=== PATIENT | male | born 1940 | race Caucasian/White ===

== ENCOUNTER → 2020-06-10 15:16 | Outpatient (CLI) | payer MEDICARE, SELFPAY ==
--- NOTE | 2020-06-10 15:20 | DI.RAD.S_ITS ---
PROCEDURE: XR FOOT RT MIN 3V INDICATIONS: dropped 4x4 on foot TECHNIQUE: Three views of the foot were acquired. COMPARISON: None. FINDINGS: Bones: No fractures or dislocations. No suspicious bony lesions. Soft tissues: No tibiotalar joint effusion. Achilles tendon appears normal. IMPRESSION: No visible fractures. Dictated by: Tiera Chin M.D. on 06/10/2020 at 15:49 Approved by: Tiera Chin M.D. on 06/10/2020 at 15:49
== END ==
PROVIDERS: Referring Provider Nurse Practitioner; Visit Provider Nurse Practitioner
DX: M79.671 Pain in right foot (principal)
CPT/HCPCS: 73630

== ENCOUNTER 2021-05-10 11:40 | Inpatient (IN) | payer MEDICARE, SELFPAY ==
[2021-05-10] VITALS (13 sets, daily range): BP systolic 106–177; BP diastolic 44–93; PULSE 62–96; RESP 15–22; TEMP 36.3–37.8; O2SAT 94–99; BMI 25.8
--- NOTE | 2021-05-10 | PATH_ITS ---
[facility] Accession Number: [id number] . 01 Material submitted: . appendix - APPENDIX . 02 Diagnosis: Appendix, Appendectomy: Acute appendicitis with serositis. No evidence of neoplasm. [facility] 05/16/2021 1654 Local . 02 Electronically signed: . Santo Motley MD, PhD, Pathologist NPI- [id number] . 01 Gross description: . The specimen is received in formalin, labeled appendix, and consists of a 5.6 cm in length by 0.6 cm in diameter vermiform appendix with attached cope-yellow lobulated mesoappendix measuring 5.0 x 3.0 x 1.5 cm in aggregate. The vermiform appendix has been previously opened longitudinally. The serosa is cope-pink and smooth. Sectioning reveals a cope mucosa and a lumen measuring 1.0 cm in diameter in circumference. The vermiform appendix is entirely submitted, to include the en face margin (blue), central cross-sections, and bisected tip in cassettes A1-A3. ([id number]) /[facility] 05/12/2021 1409 Local . 02 Pathologist provided ICD-10: K35.80 . 02 CPT . 712540 Performed at: 01 [facility] [address], [place], [place] [id number] MD Tom Curiel MD Phone: [phone] Performed at: 02 [facility] [address] [place], [place] [id number] MD Patricia Edge MD Phone: [phone]
[2021-05-10 12:22] LABS: Add Manual Diff / Slide Review NO; Basophils Absolute Auto 100 /uL (0-100); Basophils Percent Auto 0.3 % (0-2); Eosinophils Absolute Auto 100 /uL (0-450); Eosinophils Percent Auto 0.4 % (2-4); Hematocrit 44.2 % (41-53); Hemoglobin 14.7 g/dL (13.5-17.5); Lymphocytes Absolute Auto 1000 /uL (1100-4500); Lymphocytes Percent Auto 5.9 % (25-40); Mean Corpuscular HGB Conc 33.3 % (30-36); Mean Corpuscular Hemoglobin 29.6 PG (26-34); Mean Corpuscular Volume 89.1 fL (80-100); Monocytes Absolute Auto 800 /uL (0-900); Monocytes Percent Auto 4.7 % (3-14); Neutrophils Absolute Auto 14400 /uL (1500-7000); Neutrophils Percent Auto 88.7 % (50-75); Platelet Count 302 X10^3/uL (150-400); Red Blood Cell Count 4.96 X10^6/uL (4.5-5.9); Red Cell Distribution Width 13.8 % (11.6-14.8); White Blood Cell Count 16.2 X10^3/uL (4.5-11.0)
[2021-05-10 12:34] LABS: Alanine Aminotransferase 15 IU/L (<50); Albumin 4.3 g/dL (3.5-5.0); Albumin Globulin Ratio 1.5 (1.0-2.8); Alkaline Phosphatase 85 U/L (38-126); Aspartate Aminotransferase 22 IU/L (17-59); BUN Creatinine Ratio 21.7 (6-22); Bilirubin Total 0.6 mg/dL (0.2-1.3); Blood Urea Nitrogen 15 mg/dL (9-20); Calcium 9.6 mg/dL (8.4-10.2); Carbon Dioxide 28 mmol/L (22-32); Chloride 100 mmol/L (98-107); Creatine Kinase 47 U/L (55-170); Estimated Glomerular Filt Rate > 60.0 mL/min (>60); Globulin 2.9 g/dL (1.7-4.1); Glucose 179 mg/dL (80-110); HEMOLYSIS 15 (0-50); Lipase 17 U/L (23-300); Potassium 3.9 mmol/L (3.4-5.1); Sodium 135 mmol/L (137-145); Total Protein 7.2 g/dL (6.3-8.2)
[2021-05-10 12:45] LABS: Troponin I < 0.012 ng/mL (0.01-0.034)
--- NOTE | 2021-05-10 13:05 | DI.CT.S_ITS ---
PROCEDURE: CT ABDOMEN PELVIS W CON INDICATIONS: RLQ abdominal pain TECHNIQUE: After the administration of intravenous contrast, axial sections acquired from the lung bases to the pubic symphysis. Coronal and sagittal reformats were performed. For radiation dose reduction, the following was used: automated exposure control, adjustment of mA and/or kV according to patient size. COMPARISON: None. FINDINGS: Image quality: Excellent. Lung bases: Bibasilar scars and atelectasis. There is a small hiatal hernia. Heart: No significant findings. ABDOMEN: Liver: Unremarkable. Gallbladder: Unremarkable. Biliary ducts: Unremarkable. Pancreas: Unremarkable. Spleen: Unremarkable. Adrenal Glands: Unremarkable. Kidneys and Ureters: Unremarkable. Stomach and Bowel: Appendix is enlarged measuring 10 mm in diameter. There is increased appendiceal wall enhancement and mild periappendiceal stranding consistent with acute appendicitis. Cecum is thickened, probably secondary to direct spread of inflammation/infection. There is a large amount of stool in colon. A few colonic diverticula are noted. No diverticulitis. Peritoneum: A small amount of free fluid is present. No free air. Ventral Wall: No hernias. Abdominal Nodes: No retroperitoneal or mesenteric adenopathy by size criteria. Vessels: Aorta and inferior vena cava are normal in size. PELVIS: Pelvic Organs: Unremarkable. Bladder: Unremarkable. Pelvic Nodes: No enlarged lymph nodes. Miscellaneous: No hernias are seen. Bones: There are degenerative changes in lumbar spine.. IMPRESSION: 1. Enlarged appendix with increased appendiceal wall enhancement and periappendiceal stranding consistent with acute appendicitis. There is a small amount of free fluid in the right lower quadrant. No drainable fluid collections to suggest abscess. No free air. 2. Thickening of cecum is most likely secondary to direct spread of inflammation/infection. A neoplastic process is, however, not excluded. 3. A large amount of stool in colon. 4. Small hiatal hernia. 5. Bibasilar scars and atelectasis. The result was discussed with Dr. Flores. Dictated by: Pranav Soler M.D. on 05/10/2021 at 13:07 Approved by: Pranav Soler M.D. on 05/10/2021 at 13:23
--- NOTE | 2021-05-10 14:01 | ED.ABDPAIN ---
HPI - Abdominal Pain General Chief Complaint: Abdominal Pain Stated Complaint: LRQ Pain, Sent From [facility] Time Seen by Provider: 05/10/21 12:21 History of Present Illness HPI narrative: 80-year-old gentleman with a history of hypertension, hyperlipidemia, hypothyroidism currently on no blood thinners, presents in his usual state of excellent health until this morning when he developed right lower quadrant pain that became increasingly severe. Was initially seen in urgent care and sent down to the emergency room for further evaluation with concern for acute appendicitis. He describes no recent fevers, cough, chills, headache, orthopnea, dyspnea, acute neurologic changes, dysuria diarrhea or skin findings. Related Data Home Medications Medication Instructions Recorded Confirmed OMEPRAZOLE 20 mg PO Q DAY #0 12/31/10 05/10/21 Simvastatin (Zocor) 10 mg PO HS #0 12/31/10 05/10/21 lisinopril 30 mg tablet 30 mg PO DAILY 06/10/20 05/10/21 Allergies Allergy/AdvReac Type Severity Reaction Status Date / Time No Known Drug Allergies Allergy Verified 06/10/20 16:06 Review of Systems Review of Systems Narrative: Remainder of complete review of systems is otherwise unremarkable except for that included in the HPI. Patient History Medical History (Updated 05/10/21 @ 20:21 by Ekta Flores MD) Elevated cholesterol Hypertension Surgical History S/P operative procedure on shoulder S/P operative procedure on wrist Social History household members: spouse and family Smoking Status: Never smoker alcohol intake: never Smoking Status: Never smoker Substance Use Type: does not use Exam Narrative Exam Narrative: General: Healthy appearing, in no acute distress. Able to give a complete and coherent history. Well-nourished well-developed HEENT: Moist mucous membranes, normal sclera with reactive pupils, Neck: No JVD, supple Respiratory: Lungs are clear to auscultation, no wheezing no rales no rhonchi. Full and symmetrical air movement Cardiac: Regular rate and rhythm no murmurs no bruits Abdomen: Soft, moderately tender in the right lower quadrant without rebound or guarding good bowel tones, no flank pain Skin: Warm and dry, no rashes Neurologic: Grossly neurologically intact with no obvious asymmetries or abnormalities Extremities: No trauma, well perfused Psych: Cooperative, appropriate insight and affect Initial Vital Signs Initial Vital Signs: Vital Signs Temperature 97.9 F 05/10/21 12:04 Pulse Rate 78 05/10/21 12:04 Respiratory Rate 18 05/10/21 12:04 Blood Pressure 177/77 H 05/10/21 12:04 Pulse Oximetry 99 05/10/21 12:04 Course Orders Ordered: ED Orders 05/10/21 12:12 Complete Blood Count AUTO DIFF Stat Comprehensive Metabolic Panel Stat Lipase Stat Troponin & CK Cardiac Panel Stat 05/10/21 13:05 CT abdomen pelvis w con Stat 05/10/21 14:30 COVID19 - ADMIT ([employer] swab/PCR) Stat Acetaminophen (Acetaminophen 325 Mg Tablet) 650 mg PO PACUNOW PRN PRN Reason: Pain, Mild (1-3) Fentanyl (Fentanyl 100 Mcg/2 Ml Inj) 0 mcg IV Q5M PRN PRN Reason: Pain, Moderate (4-6) Hydromorphone HCl (Hydromorphone 2 Mg Inj) 0 mg IV Q5MIN PRN PRN Reason: Pain, Mild (1-3) Piperacillin Sod/Tazobactam (Sod 3.375 gm/ Sodium Chloride) 100 mls @ 25 mls/hr IV Q8H ZOILA Last Infusion: 05/10/21 19:04 Dose: 0 mls/hr Documented by: Admin: 05/10/21 18:59 Dose: 25 mls/hr Documented by: ROBERT Lactated Ringer's (Lactated Ringers) 1,000 mls @ 42 mls/hr IV CONT ZOILA Ondansetron HCl (Ondansetron 4 Mg/2 Ml Inj) 4 mg IV NOW PRN PRN Reason: Nausea And Vomiting Oxycodone HCl (Oxycodone Ir 5 Mg Tablet) 5 mg PO PACUNOW PRN PRN Reason: Mild or moderate pain Discontinued Medications Bupivacaine HCl (Bupivacaine 0.5% (Pf) Vial) 30 ml INJ NOW ONE Stop: 05/10/21 19:30 Last Admin: 05/10/21 19:29 Dose: 30 ml Documented by: ANGELA Piperacillin Sod/Tazobactam (Sod 4.5 gm/ Sodium Chloride) 100 mls @ 200 mls/hr IV NOW ONE Stop: 05/10/21 13:22 Last Infusion: 05/10/21 15:04 Dose: 0 mls/hr Documented by: Admin: 05/10/21 14:33 Dose: 200 mls/hr Documented by: KATHERYN Sodium Chloride (Normal Saline 0.9%) 1,000 mls @ 150 mls/hr IV CONT ZOILA Last Infusion: 05/10/21 15:04 Dose: 150 mls/hr Documented by: Admin: 05/10/21 14:34 Dose: 150 mls/hr Documented by: KATHERYN Lactated Ringer's (Lactated Ringers) 1,000 mls @ 150 mls/hr IV CONT ZOILA Last Infusion: 05/10/21 17:19 Dose: 0 mls/hr Documented by: Infusion: 05/10/21 17:18 Dose: 0 mls/hr Documented by: Admin: 05/10/21 15:47 Dose: 150 mls/hr Documented by: CECILIA Lactated Ringer's (Lactated Ringers) 1,000 mls @ 42 mls/hr IV CONT ZOILA Last Admin: 05/10/21 17:23 Dose: 42 mls/hr Documented by: SIERRA Metoclopramide HCl (Metoclopramide 10 Mg/2 Ml Inj) 10 mg IV NOW ONE Stop: 05/10/21 15:21 Last Admin: 05/10/21 15:47 Dose: 10 mg Documented by: CECILIA Pantoprazole Sodium (Pantoprazole 40 Mg Vial) 20 mg IV NOW ONE Stop: 05/10/21 15:21 Last Admin: 05/10/21 15:46 Dose: 20 mg Documented by: CECILIA Vital Signs Vital signs: Vital Signs - 8 hr 05/10/21 12:04 Temperature 97.9 F Pulse Rate 78 Respiratory Rate 18 Blood Pressure 177/77 H Pulse Oximetry 99 MDM - Abdominal Pain Lab Data Result diagrams: 05/10/21 12:12 05/10/21 12:12 Labs: Lab Results 05/10/21 05/10/21 05/10/21 Range/Units 12:12 12:12 12:12 WBC 16.2 H (4.5-11.0) X10^3/uL RBC 4.96 (4.5-5.9) X10^6/uL Hgb 14.7 (13.5-17.5) g/dL Hct 44.2 (41-53) % MCV 89.1 (80-100) fL MCH 29.6 (26-34) PG MCHC 33.3 (30-36) % RDW 13.8 (11.6-14.8) % Plt Count 302 (150-400) X10^3/uL Neut % (Auto) 88.7 H (50-75) % Lymph % (Auto) 5.9 L (25-40) % [place] % (Auto) 4.7 (3-14) % Eos % (Auto) 0.4 L (2-4) % Baso % (Auto) 0.3 (0-2) % Neut # (Auto) 63823 H (8996-2341) /uL Lymph # (Auto) 1000 L (5725-0185) /uL [place] # (Auto) 800 (0-900) /uL Eos # (Auto) 100 (0-450) /uL Baso # (Auto) 100 (0-100) /uL Sodium 135 L (137-145) mmol/L Potassium 3.9 (3.4-5.1) mmol/L Chloride 100 (98-107) mmol/L Carbon Dioxide 28 (22-32) mmol/L BUN 15 (9-20) mg/dL Creatinine 0.69 (0.66-1.25) mg/dL Estimated GFR > 60.0 (>60) mL/min BUN/Creatinine Ratio 21.7 (6-22) Glucose 179 H (80-110) mg/dL Calcium 9.6 (8.4-10.2) mg/dL Total Bilirubin 0.6 (0.2-1.3) mg/dL AST 22 (17-59) IU/L ALT 15 (<50) IU/L Alkaline Phosphatase 85 (38-126) U/L Total Creatine Kinase 47 L (55-170) U/L CK-MB (CK-2) TNP CK-MB (CK-2) Rel Index TNP Troponin I < 0.012 (0.01-0.034) ng/mL Total Protein 7.2 (6.3-8.2) g/dL Albumin 4.3 (3.5-5.0) g/dL Globulin 2.9 (1.7-4.1) g/dL Albumin/Globulin Ratio 1.5 (1.0-2.8) Lipase 17 L (23-300) U/L Imaging Data CT scan - abdomen/pelvis: Radiologist's Impression: INDINGS: Image quality: Excellent. Lung bases: Bibasilar scars and atelectasis. There is a small hiatal hernia. Heart: No significant findings. ABDOMEN: Liver: Unremarkable. Gallbladder: Unremarkable. Biliary ducts: Unremarkable. Pancreas: Unremarkable. Spleen: Unremarkable. Adrenal Glands: Unremarkable. Kidneys and Ureters: Unremarkable. Stomach and Bowel: Appendix is enlarged measuring 10 mm in diameter. There is increased appendiceal wall enhancement and mild periappendiceal stranding consistent with acute appendicitis. Cecum is thickened, probably secondary to direct spread of inflammation/infection. There is a large amount of stool in colon. A few colonic diverticula are noted. No diverticulitis. Peritoneum: A small amount of free fluid is present. No free air. Ventral Wall: No hernias. Abdominal Nodes: No retroperitoneal or mesenteric adenopathy by size criteria. Vessels: Aorta and inferior vena cava are normal in size. PELVIS: Pelvic Organs: Unremarkable. Bladder: Unremarkable. Pelvic Nodes: No enlarged lymph nodes. Miscellaneous: No hernias are seen. Bones: There are degenerative changes in lumbar spine.. IMPRESSION: 1. Enlarged appendix with increased appendiceal wall enhancement and periappendiceal stranding consistent with acute appendicitis. There is a small amount of free fluid in the right lower quadrant. No drainable fluid collections to suggest abscess. No free air. 2. Thickening of cecum is most likely secondary to direct spread of inflammation/infection. A neoplastic process is, however, not excluded. 3. A large amount of stool in colon. 4. Small hiatal hernia. 5. Bibasilar scars and atelectasis. The result was discussed with Dr. Flores. Dictated by: Pranav Soler M.D. on 05/10/2021 at 13:07 MDM Narrative Medical decision making narrative: 80-year-old gentleman with acute right lower quadrant pain elevated white blood cell count CT scan suggestive of acute appendicitis. His is aged rather abrupt presentation the possibility of a para appendiceal neoplastic process is at least entertained. Care is reviewed with Dr. John, general surgeon. Patient will be admitted to his service with anticipation of surgical intervention later this afternoon. At this point there is no evidence of overwhelming sepsis and he is safe for transfer to the floor. Discharge Plan Departure Patient Disposition: Admitted As Inpatient Clinical Impression: Acute appendicitis Qualifiers: Acute appendicitis type: with localized peritonitis Appendicitis gangrene presence: without gangrene Appendicitis perforation presence: without perforation Appendicitis abscess presence: without abscess Qualified Code(s): K35.30 - Acute appendicitis with localized peritonitis, without perforation or gangrene Admit Date/Time: 05/10/21 14:10 Admit Provider: Oleksandr John
[2021-05-10] MEDS: PIPERACILLIN/TAZO 4.5 GM in SODIUM CHLORIDE 0.9% 100 ML 200 ML IV (14:33)
[2021-05-10] MEDS: SODIUM CHLORIDE 0.9% 1,000 ML 150 ML IV (14:34)
[2021-05-10] MEDS: ONDANSETRON 4 MG/2 ML INJ (14:34)
--- NOTE | 2021-05-10 14:48 | PC.NURSE ---
Reports last PO intake 0900. 05/29 pain, declining anything for pain at this time.
[2021-05-10 15:24] LABS: COVID19 - ADMIT (NP swab/PCR) Negative (Negative)
--- NOTE | 2021-05-10 15:43 | PM.HP.1 ---
History of Present Illness History of Present Illness Chief complaint: LRQ Pain, Sent [facility] Narrative: Patient is a gentleman who developed abdominal pain at about 9 or 10:00 a.m. this morning. He thought he was constipated and took something but it did not do anything. His pain is located mostly in the right lower quadrant. He has not had this pain before. He has never had an abdominal operation. He has been nauseated. Anorexic. Last p.o. was yesterday. Last normal bowel movement was a day and half ago which is typical for him. Patient History Medical History (Updated 05/10/21 @ 15:51 by Oleksandr John MD) Elevated cholesterol Hypertension Surgical History (Updated 05/10/21 @ 15:45 by Oleksandr John MD) S/P operative procedure on shoulder S/P operative procedure on wrist Family & Social History Safety & Behavioral: Feels Safe in Current Yes Environment Been Physically Hurt or No Threatened By a Person Tobacco & Substance use: Smoking Status Never smoker Substance Use Type does not use Meds Home Medications and Allergies Home Medications Medication Instructions Recorded Confirmed Type ASPIRIN (Aspirin Low Dose) 81 mg PO Q DAY #0 12/31/10 06/10/20 History MULTIVITAMIN (Multivitamin 1 cap PO EVERY DAY #0 12/31/10 06/10/20 History -) OMEPRAZOLE 20 mg PO Q DAY #0 12/31/10 06/10/20 History Simvastatin (Zocor) 10 mg PO HS #0 12/31/10 06/10/20 History lisinopril 30 mg tablet 30 mg PO DAILY 06/10/20 06/10/20 History Allergies Allergy/AdvReac Type Severity Reaction Status Date / Time No Known Drug Allergies Allergy Verified 06/10/20 16:06 Review of Systems Review of Systems Narrative: Patient denies visit cold difficulties. No tooth aches no cough cold or asthma no heart problems. No chest pain. No black or bloody bowel movements. Has had a colonoscopy. It has been about 4 years. Patient has had an echocardiogram because of a murmur and he is unaware of anything seriously found patient urinates without difficulty. No seizures or blackouts. No anxiety or depression. Exam Vital Signs (past 8 hours): - 05/10/21 12:04 05/10/21 15:06 05/10/21 15:15 Temperature 97.9 F 99.1 F Pulse Rate 78 76 96 H Respiratory Rate 18 16 18 Blood Pressure 177/77 H 150/93 H 142/78 H Pulse Oximetry 99 94 94 Oxygen Delivery Method Room Air Oxygen Flow Rate 0 Narrative Exam Narrative: Cooperative no apparent distress. Her eyes are nonicteric. Neck is without nodes or masses. No supraclavicular nodes are felt. Trachea may be slightly deviated to the left. But is mobile. Lungs are clear to auscultation. Heart regular rate and rhythm with 2/6 systolic murmur best at the base with no radiation of the neck. He has an occasional missed beat. No heave lift or thrill. His abdomen is mildly protuberant/mildly distended and soft. There is tenderness in the right lower quadrant that is localized. No involuntary guarding. Alert and oriented x3. Speech rate and content are appropriate. Affect is appropriate. Objective Imaging CT scan - abdomen: My impression: Patient has a thickening and stranding in adjacent to his appendix. It is hyperemic. Labs Result Diagrams: 05/10/21 12:12 05/10/21 12:12 Labs: Laboratory Results - last 24 hr 05/10/21 05/10/21 05/10/21 12:12 12:12 12:12 WBC 16.2 H RBC 4.96 Hgb 14.7 Hct 44.2 MCV 89.1 MCH 29.6 MCHC 33.3 RDW 13.8 Plt Count 302 Neut % (Auto) 88.7 H Lymph % (Auto) 5.9 L [place] % (Auto) 4.7 Eos % (Auto) 0.4 L Baso % (Auto) 0.3 Neut # (Auto) 29182 H Lymph # (Auto) 1000 L [place] # (Auto) 800 Eos # (Auto) 100 Baso # (Auto) 100 Sodium 135 L Potassium 3.9 Chloride 100 Carbon Dioxide 28 BUN 15 Creatinine 0.69 Estimated GFR > 60.0 BUN/Creatinine Ratio 21.7 Glucose 179 H Calcium 9.6 Total Bilirubin 0.6 AST 22 ALT 15 Alkaline Phosphatase 85 Total Creatine Kinase 47 L CK-MB (CK-2) TNP CK-MB (CK-2) Rel Index TNP Troponin I < 0.012 Total Protein 7.2 Albumin 4.3 Globulin 2.9 Albumin/Globulin Ratio 1.5 Lipase 17 L SARS-CoV-2 (PCR) 05/10/21 14:30 WBC RBC Hgb Hct MCV MCH MCHC RDW Plt Count Neut % (Auto) Lymph % (Auto) [place] % (Auto) Eos % (Auto) Baso % (Auto) Neut # (Auto) Lymph # (Auto) [place] # (Auto) Eos # (Auto) Baso # (Auto) Sodium Potassium Chloride Carbon Dioxide BUN Creatinine Estimated GFR BUN/Creatinine Ratio Glucose Calcium Total Bilirubin AST ALT Alkaline Phosphatase Total Creatine Kinase CK-MB (CK-2) CK-MB (CK-2) Rel Index Troponin I Total Protein Albumin Globulin Albumin/Globulin Ratio Lipase SARS-CoV-2 (PCR) Negative Assessment & Plan Assessment and plan (1) Acute appendicitis: Problem details: Plan to do a laparoscopic appendectomy. I spent some time talking to him about alternative diagnoses. It is a little unusual for an 80-year-old to have an isolated appendicitis though it is certainly possible. He could have tumor causing this. I discussed that with him and the potential to do an open procedure or or a intestinal resection. Risks of bleeding infection possible anastomotic leak hernia all discussed with him. Given his age he could have other problems develop. All questions were answered. He appears to understand wishes to proceed. Qualifiers: Acute appendicitis type: with localized peritonitis Appendicitis abscess presence: without abscess Appendicitis gangrene presence: unspecified whether gangrene present Appendicitis perforation presence: unspecified whether perforation present Qualified Code(s): K35.30 - Acute appendicitis with localized peritonitis, without perforation or gangrene Status: Acute
[2021-05-10] MEDS: PANTOPRAZOLE 40 MG VIAL 20 MG IV (15:46)
[2021-05-10] MEDS: METOCLOPRAMIDE 10 MG/2 ML INJ IV (15:47)
[2021-05-10] MEDS: LACTATED RINGERS 1,000 ML 150 ML IV (15:47)
--- NOTE | 2021-05-10 15:51 | PM.PREOP ---
Pre-operative Note COVID-19 COVID-19 status: Negative Interval Note History & Physical reviewed/Exam performed by Physician: Yes Changes to H&P: No
[2021-05-10] MEDS: LACTATED RINGERS 1,000 ML 42 ML IV (17:23)
[2021-05-10] MEDS: PIPERACILLIN/TAZO 3.375 GM in SODIUM CHLORIDE 0.9% 100 ML 25 ML IV (18:59)
--- NOTE | 2021-05-10 19:16 | SUR.OPER ---
Supine on padded OR bed, head on pillow, right arm secured on padded arm boards at <90 degrees abduction, left arm padded and secured at side, legs uncrossed, safety belt at thigh, tape over blanket over lower legs.
[2021-05-10] MEDS: BUPIVACAINE 0.5% (PF) VIAL 30 ML INJ (19:29)
[2021-05-10] MEDS: LACTATED RINGERS 1,000 ML 125 ML IV ×2 (20:28→23:00)
--- NOTE | 2021-05-10 21:51 | SUR.PHASEI ---
Pt arrived to PACU with patent airway, nasal cannula added. Pt arousable, follows simple commands.
--- NOTE | 2021-05-10 22:24 | SUR.PHASEI ---
Pt brought up to room 210 and left with Kingsley in stable condition, bed down and locked, call gaytan in reach.
--- NOTE | 2021-05-10 22:33 | PM.OP.1 ---
Operative Date/Time/Diagnoses Date of procedure: 05/10/21 Time of procedure: 22:00 Pre-op diagnosis: Acute appendicitis(dictation delayed by approximately half an hour due to an emergency consultation in the ER.) Post-op diagnosis: other (Perforated appendicitis with adjacent abscess) Procedure & Clinicians Procedure: Laparoscopic converted to open appendectomy Same procedure as scheduled: Yes Indications: Patient with short.(less than 8 hours) Abdominal pain and elevated white blood cell count and a CT consistent with acute appendicitis. Surgeon: Oleksandr John Click Yes if Unassisted: Yes Anesthesia Type: General Operative Notes Findings: Marked inflammation and abscess adjacent to the cecum with the appendix lying under the ileocecal valve. The base of the appendix appeared to be perforated but the remainder appeared to be little affected Closure Type: non-primary Specimen(s): other (Appendix) Applied: drain(s) (10 mm Dhaval-Moe drain placed in the right gutter brought out through the supraumbilical port site) Estimated Blood Loss (mL): 30 Blood products transfused: none Procedure in detail: The patient was placed supine on the operating room table underwent general endotracheal anesthesia. A Espana was inserted and hair clipped. He was prepped and draped in the usual fashion. A vertical may incision was made just above the umbilicus and carried down under direct vision in the peritoneal cavity. Stay sutures of 0 Vicryl were placed in the fascia. A 12 mm port was inserted. Two additional ports were placed. These were 5 mm ports. They were placed in the supra pubic area being careful to avoid the bladder for and in the left lower quadrant. There was purulence along the small bowel in the right abdomen against the abdominal wall. The remainder of the small bowel was essentially unremarkable. The cecum was normal in appearance. And appeared soft and pliable. In bluntly dissecting along the edge of the cecum pus began to pour out of the area and I cultured this. It was somewhat limited in volume. I irrigated and suctioned this material. I a divided additional attachments of the cecum to the right abdominal wall and attempted to rotate it medially. I had limited ability to do this however and after multiple attempts to visualize the appendix VINCENZO decided that I needed to do some blunt finger fracturing. Therefore I made a small incision near McBurney's point and divided the 3 layers of fascia in parallel with their fibers. I entered the peritoneal cavity in using my finger bluntly dissected the cecum in the terminal ileum and palpated the appendix. Despite this I still could not rotate the intestine far enough to see adequately and therefore I decided to open the patient. Using the incision near McBurney's point I extended it and divided the soft tissues down to the muscle. The fascial openings were extended in parallel with its fibers and I entered the peritoneal cavity again. I readily identified of her soft cecum. The terminal ileum was a bit more inflamed as was the fat pad on it. I identified a structure that appeared to be the appendix and with great difficulty dissected from its surrounding structures. The tissues were quite thickened and it was difficult to tell what was fat and what was appendix. Ultimately I freed the appendix from the tip down to the base of the cecum. I tied what appeared to be use the appendiceal opening with an O chromic tie. It appeared that there was a small opening just beyond the base of the appendix. I divided the appendix at this level and removed it and opened it along its length. Actually looked fairly normal elsewhere and there was a fecalith in the tip. This was submitted. I used a pursestring around the base of the appendix with 3-0 Vicryl and secured it though it looked as though the lumen was strictured closed. Once this was tied I put a pursestring further out and dunked the tip of the appendix to secure this site further. I then copiously irrigated the right gutter and the pelvis. I could not see any bleeding. I could not identify any other abnormalities. A drain was brought out through the suprapubic port site and placed in the right gutter and behind the cecum. It was secured with a 3-0 nylon suture. The fascia at the supraumbilical port site had an additional 2-0 PDS placed between the 0 Vicryl stitch and all 3 sutures were tied. The wound was irrigated and 4-0 Vicryl was used to approximate the skin. Wound in the left lower quadrant was closed with interrupted 4-0 Vicryl subcuticular stitch. The open appendectomy site in the right lower quadrant was closed as follows. The peritoneum was closed with a running 5 3-0 Vicryl suture. I irrigated between layered closures. The subQ was and skin were left open though I did place 3-0 nylon sutures to tie this closed in several days. It was packed with saline gauze. Dressings were applied and the patient was awakened, extubated and taken the recovery room good condition. Complications: none Post-operative Condition: stable Disposition: PACU
[2021-05-11] VITALS (11 sets, daily range): BP systolic 101–133; BP diastolic 51–68; PULSE 64–86; RESP 14–17; TEMP 36–37.3; O2SAT 94–99
[2021-05-11] MEDS: PIPERACILLIN/TAZO 3.375 GM in SODIUM CHLORIDE 0.9% 100 ML 25 ML IV ×3 (02:20→18:46)
[2021-05-11] MEDS: MORPHINE 4 MG/ML INJ IV ×3 (04:54→14:20)
[2021-05-11 06:36] LABS: Add Manual Diff / Slide Review NO; Basophils Absolute Auto 0 /uL (0-100); Basophils Percent Auto 0.3 % (0-2); Eosinophils Absolute Auto 0 /uL (0-450); Hematocrit 37.6 % (41-53); Hemoglobin 12.4 g/dL (13.5-17.5); Lymphocytes Absolute Auto 2200 /uL (1100-4500); Mean Corpuscular HGB Conc 33.1 % (30-36); Mean Corpuscular Hemoglobin 29.5 PG (26-34); Mean Corpuscular Volume 89.3 fL (80-100); Monocytes Absolute Auto 1200 /uL (0-900); Monocytes Percent Auto 6.6 % (3-14); Neutrophils Absolute Auto 14800 /uL (1500-7000); Neutrophils Percent Auto 81.1 % (50-75); Platelet Count 270 X10^3/uL (150-400); Red Blood Cell Count 4.21 X10^6/uL (4.5-5.9); Red Cell Distribution Width 13.9 % (11.6-14.8); White Blood Cell Count 18.2 X10^3/uL (4.5-11.0)
[2021-05-11 06:43] LABS: Alanine Aminotransferase 12 IU/L (<50); Albumin 3.1 g/dL (3.5-5.0); Albumin Globulin Ratio 1.2 (1.0-2.8); Alkaline Phosphatase 58 U/L (38-126); Aspartate Aminotransferase 16 IU/L (17-59); Bilirubin Total 1.2 mg/dL (0.2-1.3); Blood Urea Nitrogen 13 mg/dL (9-20); Calcium 8.4 mg/dL (8.4-10.2); Carbon Dioxide 27 mmol/L (22-32); Chloride 102 mmol/L (98-107); Estimated Glomerular Filt Rate > 60.0 mL/min (>60); Globulin 2.5 g/dL (1.7-4.1); Glucose 134 mg/dL (80-110); HEMOLYSIS < 15 (0-50); Magnesium 1.8 mg/dL (1.6-2.3); Potassium 3.6 mmol/L (3.4-5.1); Sodium 134 mmol/L (137-145); Total Protein 5.6 g/dL (6.3-8.2)
[2021-05-11 06:59] LABS: Procalcitonin 0.94 ng/mL (<0.5)
[2021-05-11] MEDS: LACTATED RINGERS 1,000 ML 125 ML IV ×2 (08:46→16:44)
[2021-05-11] MEDS: ENOXAPARIN 40 MG/0.4 ML SYRINGE SUBCUT (08:46)
[2021-05-11] MEDS: GABAPENTIN 300 MG CAPSULE PO ×2 (08:47→20:57)
[2021-05-11] MEDS: ONDANSETRON 4 MG/2 ML INJ IV ×2 (11:39→16:49)
--- NOTE | 2021-05-11 15:12 | PC.NURSE ---
Post-op: Taking sm amt of diet, not real hungry. No flatus yet, hypo bt's. After getting up to the chair pt had nausea and few dry heaves. made aware and zofran given, pt reports same effective. Was able to tolerate a sm amt of lunch. Did sit in chair x4 hours. He reported he was comfortable each time he was asked if he needed to lay back down. Morphine given x2 ivp, pt aware he can have more pain med if he needed it but declined. While he has some pain he says the pain is much better than when he was admitted/prior to surgery. He is willing to take a short walk after dinner. He reports he is usually very active, even chops wood at home. Able to wean O2 off, O2 on 2L sats were 98%. On RA sats were 94%. Was spot checked through the day. His lowest was 93% and the highest was 96%. He is aware they will check at night and he may need O2 over night again. Currently resting in bed and denies any concerns.
--- NOTE | 2021-05-11 15:35 | CM.DANOTE ---
Discharge Planning/Care Management DCP: assessment: case received, EMR reviewed and met now with pt. Introduced self and role. Pt is an 80 year old male who admitted yesterday afternoon to care of [facility]: Dr. Greenberg who took him urgently to surgery last night. Surgery: laproscopic convert to open for a perforated appendix with adjacent abscess. Payer: Medicare and [employer] Admission status: INPT: confirmed by [facility] HERBER Santos. PCP: Dr. Whelan/[facility] Pt confirms he is functionally independent in the community at baseline. He says his son Kevin, who lives with him and his is capable of assisting him if he needs anything at d/c. P at this time anticipate d/c to home setting when stable for same but is just one day post op. Will follow prn. CM Discharge Assessment Start: 05/11/21 15:34 Freq: Status: Active Protocol: Document 05/11/21 15:34 ITV (Rec: 05/11/21 15:35 ITV [id number]) Discharge Planning Assessment Advance Directives? No History Provided By Patient,Medical Record Has Patient been admitted in last 30 No days? Prior Living Arrangements House Household Members spouse,family Comment Marge and son Kevin Type of transportation used prior to Drives own vehicle admit Independent with ADL's Yes Is patient alert and oriented? Yes
--- NOTE | 2021-05-11 19:55 | P.PN_ITS ---
Subjective Subjective Interval history: Postop day 1. Patient did not tolerate p.o. liquids well. He threw up earlier. He has pain where he has incisions but the pain is different than yesterday. He says some places hurt more in some less than yesterday. He is resistant to have his Espana removed tonight because it will force him to get out of bed. He has not had any flatus and air passed any stool and he feels distended. Exam Vital Signs (past 8 hours): - 05/11/21 15:55 05/11/21 19:26 Temperature 97.8 F 96.8 F L Pulse Rate 73 86 Respiratory Rate 17 16 Blood Pressure 132/58 L 133/68 Pulse Oximetry 98 96 Oxygen Delivery Method Room Air Oxygen Flow Rate 1 Narrative Exam Narrative: Cooperative no apparent distress. Lungs are clear. His abdomen is distended but soft. Right lower quadrant wound looks fine. He has had a lot of drainage around the drain site. The drainage is actually serous today. No cellulitis. Band-Aids are in place. Objective Labs Result Diagrams: 05/11/21 06:17 05/11/21 06:17 Labs: Laboratory Results - last 24 hr 05/11/21 05/11/21 06:17 06:17 WBC 18.2 H RBC 4.21 L Hgb 12.4 L Hct 37.6 L MCV 89.3 MCH 29.5 MCHC 33.1 RDW 13.9 Plt Count 270 Neut % (Auto) 81.1 H Lymph % (Auto) 12.0 L [place] % (Auto) 6.6 Eos % (Auto) 0.0 L Baso % (Auto) 0.3 Neut # (Auto) 57508 H Lymph # (Auto) 2200 [place] # (Auto) 1200 H Eos # (Auto) 0 Baso # (Auto) 0 Sodium 134 L Potassium 3.6 Chloride 102 Carbon Dioxide 27 BUN 13 Creatinine 0.81 Estimated GFR > 60.0 BUN/Creatinine Ratio 16.0 Glucose 134 H Calcium 8.4 Magnesium 1.8 Total Bilirubin 1.2 AST 16 L ALT 12 Alkaline Phosphatase 58 Total Protein 5.6 L Albumin 3.1 L Globulin 2.5 Albumin/Globulin Ratio 1.2 Procalcitonin 0.94 H [facility] Medical History Elevated cholesterol Hypertension Surgical History S/P operative procedure on shoulder S/P operative procedure on wrist Social History household members: spouse and family Smoking Status: Never smoker alcohol intake: never Assessment & Plan Post-op Postoperative Procedures: Procedures Operation Date: 05/10/21 18:15 Actual Procedure Side Surgeon p Laparoscopic Appendectomy Convert to Open Oleksandr John MD Postoperative day: 1 Postoperative status narrative: Doing about as expected. White blood cell count is elevated which is not surprising given what I found in the operations performed. Wounds are clean. Postoperative plan narrative: Continue DVT prophylaxis. Continue wound care. Saline wet to dry twice a day. Will tie wound closed either Friday or Friday. Continue broad-spectrum antibiotics. Labs in the a.m.. Remove Espana in the a.m.. Collect suppository in the a.m. to stimulate bowel function. Quality VTE Deep Vein Thrombosis/Pulmonary Embolism Present on Admission: No
[2021-05-11] MEDS: ATORVASTATIN 20 MG TABLET 10 MG PO (20:57)
[2021-05-12] VITALS (10 sets, daily range): BP systolic 105–154; BP diastolic 57–64; PULSE 61–78; RESP 15–18; TEMP 35.9–37.4; O2SAT 91–98
[2021-05-12] MEDS: LACTATED RINGERS 1,000 ML 125 ML IV ×2 (00:47→21:17)
[2021-05-12] MEDS: PIPERACILLIN/TAZO 3.375 GM in SODIUM CHLORIDE 0.9% 100 ML 25 ML IV ×4 (01:18→20:52)
[2021-05-12 06:38] LABS: Add Manual Diff / Slide Review NO; Basophils Absolute Auto 100 /uL (0-100); Basophils Percent Auto 0.4 % (0-2); Eosinophils Absolute Auto 0 /uL (0-450); Eosinophils Percent Auto 0.2 % (2-4); Hematocrit 38.4 % (41-53); Lymphocytes Absolute Auto 1500 /uL (1100-4500); Lymphocytes Percent Auto 10.8 % (25-40); Mean Corpuscular HGB Conc 33.9 % (30-36); Mean Corpuscular Hemoglobin 30.2 PG (26-34); Monocytes Absolute Auto 800 /uL (0-900); Monocytes Percent Auto 5.5 % (3-14); Neutrophils Absolute Auto 11700 /uL (1500-7000); Neutrophils Percent Auto 83.1 % (50-75); Platelet Count 284 X10^3/uL (150-400); Red Blood Cell Count 4.32 X10^6/uL (4.5-5.9); Red Cell Distribution Width 13.4 % (11.6-14.8); White Blood Cell Count 14.1 X10^3/uL (4.5-11.0)
[2021-05-12] MEDS: BISACODYL 10 MG SUPP PR (09:22)
[2021-05-12] MEDS: ENOXAPARIN 40 MG/0.4 ML SYRINGE SUBCUT (09:23)
[2021-05-12] MEDS: GABAPENTIN 300 MG CAPSULE PO ×2 (09:24→20:56)
[2021-05-12] MEDS: lisinopriL 10 MG TABLET 30 MG PO (09:24)
[2021-05-12] MEDS: MORPHINE 4 MG/ML INJ IV (09:26)
--- NOTE | 2021-05-12 09:37 | P.PN_ITS ---
Subjective Subjective Date Patient Seen: 05/12/21 Time Patient Seen: 14:23 Interval history: No acute events. Taking small amount of clear liquid diet is distended not out of bed or walking yet. Exam Vital Signs (past 8 hours): - 05/12/21 05:30 05/12/21 05:47 05/12/21 09:24 Temperature 97.9 F Pulse Rate 72 73 Respiratory Rate 18 Blood Pressure 119/60 146/62 H Pulse Oximetry 92 91 Oxygen Delivery Method Nasal Cannula Oxygen Flow Rate 1 Narrative Exam Narrative: General elderly man alert oriented no acute distress Abdomen distended drain serosanguineous. Appropriately tender to palpation. Objective Labs Result Diagrams: 05/12/21 06:20 05/11/21 06:17 Labs: Laboratory Results - last 24 hr 05/12/21 06:20 WBC 14.1 H RBC 4.32 L Hgb 13.0 L Hct 38.4 L MCV 89.0 MCH 30.2 MCHC 33.9 RDW 13.4 Plt Count 284 Neut % (Auto) 83.1 H Lymph % (Auto) 10.8 L Pershing % (Auto) 5.5 Eos % (Auto) 0.2 L Baso % (Auto) 0.4 Neut # (Auto) 61657 H Lymph # (Auto) 1500 [place]hing # (Auto) 800 Eos # (Auto) 0 Baso # (Auto) 100 PFSH Medical History (Updated 05/11/21 @ 20:15 by Oleksandr John MD) Elevated cholesterol Hypertension Surgical History S/P operative procedure on shoulder S/P operative procedure on wrist Social History household members: spouse and family Smoking Status: Never smoker alcohol intake: never Assessment & Plan Post-op Postoperative Procedures: Procedures Operation Date: 05/10/21 18:15 Actual Procedure Side Surgeon p Laparoscopic Appendectomy Convert to Open Oleksandr John MD Postoperative status narrative: 80-year-old male postoperative day 2 status post laparoscopic appendectomy for perforated appendicitis. -postoperative ileus okay for clear liquid diets weight 2 advanced until return of bowel function -continue IV Zosyn. Follow-up microbiology deescalate when cultures are available -will remove drain today -DC Espana catheter -out of bed ambulate physical therapy -saline lock when tolerating adequate p.o. -SCDs and Lovenox for VTE prophylaxis Quality VTE Deep Vein Thrombosis/Pulmonary Embolism Present on Admission: No
--- NOTE | 2021-05-12 11:00 | PT.IIE ---
Current Diagnoses Acute appendicitis with localized peritonitis, without perforation or gangrene (05/10/21) Acute appendicitis with perforation and localized peritonitis, with abscess (05/10/21) Surgery Performed Operation Date: 05/10/21 18:15 Actual Procedures p Laparoscopic Appendectomy Convert to Open - Oleksandr John MD Medical History (Last Updated 05/11/21 @ 20:15 by Oleksandr John MD) Elevated cholesterol Hypertension Physical Therapy Inpatient Evaluation/Re-Eval M1 PT/OT-IP Prior Functional Status Start: 05/12/21 13:52 Freq: NEEDED Status: Active Protocol: Document 05/12/21 11:00 AB (Rec: 05/12/21 14:03 AB [id number]) Medical Review Prior Functional Status Medical History Reviewed Yes Communication able to make needs known Mobility and Gait pt stated that he is independent with all mobilities and ambulation without AD Social History Household Members spouse,family Living Arrangements House Number of Floors (Floors) One Floor Number of Stairs To Enter/Railing? ramp to enter Home Environment Standard Height Toilet,Tub/ Shower Home Equipment Shower Seat without Backrest, Grab Bars In Shower Additional Social History Comment pt's son can assist pt M2 PT-IP Current Condition Start: 05/12/21 13:52 Freq: NEEDED Status: Active Protocol: Document 05/12/21 11:00 AB (Rec: 05/12/21 14:03 AB [id number]) Physical Therapy Current Condition Current Condition Evaluation Date 05/12/21 Treatment Diagnosis s/p appendectomy; difficulty in walking Onset Date 05/10/21 Precautions Abdominal Surgery Precautions Log Roll,Lifting Restrictions, Gait Belt above Incisional Area M3 PT-IP Subjective Start: 05/12/21 13:52 Freq: NEEDED Status: Active Protocol: Document 05/12/21 11:00 AB (Rec: 05/12/21 14:03 AB [id number]) Subjective Physical Therapy Visit Type Type Initial Evaluation Visit Start Time 11:00 Visit Stop Time 12:55 Total Visit Minutes 46 Notes split visits: [id number] am and 1214 to 1255pm Number of LINE CLEARANCE FOREMAN Visits 0 Physical Therapy Visit Comments Patient Comments pt is agreeable to do PT Therapy Pain Assessment Pain When Pain Assessed At Rest Pain Present Pain Present Pain Reported Location rlq Intensity 2 Scale Used Numeric (0 - 10) Pain Management Techniques Distraction,Modification of Treatment,Re-positioning, Timing of Activity with Medications M4 PT-IP Mobility and Gait Start: 05/12/21 13:52 Freq: NEEDED Status: Active Protocol: Document 05/12/21 11:00 AB (Rec: 05/12/21 14:03 AB [id number]) PT-Bed Mobility Assessment Rolling Type of Rolling Log Rolling Level of Assist Standby Assistance Supine to Sit Supine to Sit Standby Assistance,Bedrails PT-Transfer Assessment Sit to and From Stand Sit to and from Stand Contact Guard Assistance,1 Person Assistance,Use of Upper Extremities Equipment Transfer Assistive Device Gait Belt,Front Wheeled Walker Orthotic/Prosthetic Devices or Brace: No Transfers Transfer Destination Chair Transfer Technique ambulated Transfer Ability Level of Assist Contact Guard Assistance Comments Mobility Comments educated pt on abdominal precautions and log roll bed mobility. completed log roll supine to sit SBA with use of bed rail. pt was able to sit on EOB SBA. completed sit to stand CGA and ambulated in room ~ 50 ft using FWW CGA. presents with UE use on FWW for support and has slow kwame. pt agreed to sit on the chair. positioned on the chair. call light and table placed within reach. informed pt regarding possible need of FWW for home depending on progress and to inform his son to acquire one. DME list provided. pt understood. Gait Assessment Gait Gait Assistance Required: Contact Guard Assist Distance (Feet) 50 Able to Maintain Weight Bearing Status Yes During Gait Assistive Devices Assistive Device Gait Belt,Front Wheeled Walker Orthotic/Prosthetic Devices or Brace: No Gait Deviations General Gait Pattern Decreased Stride Length, Decreased Feet Clearance Factors Limiting Gait Function Factors Limiting Gait Function Decreased Activity Tolerance, Decreased Strength,Limited Range of Motion,Pain,Poor Balance PT-Balance Assessment Sitting Balance and Reactions Static Sitting Balance Ability Normal Dynamic Sitting Balance Ability Good Standing Balance and Reactions Static Standing Balance Ability Fair Dynamic Standing Balance Ability Fair Device Used FWW M5 PT-IP Objective Assessments Start: 05/12/21 13:52 Freq: NEEDED Status: Active Protocol: Document 05/12/21 11:00 AB (Rec: 05/12/21 14:03 AB [id number]) Orientation Orientation/Cognition Level of Alertness Alert Orientation Name,Place,Situation Language Function Ability No Deficits Noted Safety Awareness Understands Safety Issues Memory Description No Deficits Noted Gross Range of Motion Lower Extremity ROM Assessment Within Functional Limits Strength Comments Strength Comments RLE : 4-/5 LLE: 4/5 Coordination Assessment Gross Coordination Gross Coordination WNL Sensation Assessment Sensation Gross Sensation WNL Muscle Tone Muscle Tone WNL Yes M6 PT-IP Treatment Start: 05/12/21 13:52 Freq: NEEDED Status: Active Protocol: Document 05/12/21 11:00 AB (Rec: 05/12/21 14:03 AB [id number]) Physical Therapy Treatment Education Education Provided Precautions,Safety M7 PT-IP Assessment and Plan Start: 05/12/21 13:52 Freq: NEEDED Status: Active Protocol: Document 05/12/21 11:00 AB (Rec: 05/12/21 14:03 AB [id number]) PT Summary Assessment and Plan Potential Rehabilitation Potential Good Status of Condition at Evaluation Evolving Summary Impairments Pain,ROM,Strength,Balance, Coordination,Sensation,Bed Mobility,Transfers,Gait, Activity Tolerance Assessment Summary pt requiring CGA with ambulation using FWW but has decrease activity tolerance affecting mobility. pt will likely progress during hospital stay. pt stated that his son will be able to assist him at home if needed. will continue to assess progress. Goals Bed Mobility Goal Independent Transfer Goal Independent,Front Wheeled Walker Gait Goal Independent,Front Wheel Walker Gait Distance 250 Other Goals ambulation without AD 250 ft SBA Days to Meet Goals 10 Frequency of Treatment Frequency Of Treatment Once a Day Treatment Plan Physical Therapy Treatment Plan Bed Mobility Training,Transfer Training,Gait Training, Therapeutic Exercise,Balance Retraining,Post Op Education, Discharge Planning,Hot or Cold Pack,Neuromuscular Re-ed, Coordination Retraining,Manual Therapy Precautions Abdominal Surgery Precautions Log Roll,Lifting Restrictions, Gait Belt above Incisional Area Recommendations To Nursing Amount of Assist Needed 1 Person Assist Discharge Recommendations PT Discharge Recommendations Home with Assistance Transportation Needs at Discharge Private Vehicle
[2021-05-12] MEDS: KETOROLAC 30 MG/ML VIAL 15 MG IV ×3 (11:48→21:04)
--- NOTE | 2021-05-12 13:37 | CM.DPC ---
DCP: continued: EMR reviewed and Dr. John's progress note of last evening is noted. 2x day wet to dry dressing changes are noted with a plan to tie the wound closed either tomorrow or Friday. Checked in now with HERBER Rapp re specifics. She reports that it is unclear at this time the extent of the wound care issues. Dr. Yin, on for this weekend, will be here later this afternoon and plans to remove drain and all dressings including extensive reinforcement over a large area. Pt again had difficulty tolerating oral meds/diet this morning but HERBER Rapp reports he was able to eat the diet provided at lunch in full. Checked in on pt. He is found up in bedside chair, emesis bag at hand and appeared to be dozing. DC disposition is far from clear at this time. DPC team will follow along with pt and family to offer assist. Pt may benefit from PT when surgeon thinks this is appropriate.
--- NOTE | 2021-05-12 14:12 | PC.NURSE ---
wound cx results: gram - bacilli & gram + cocci. placed on contact isolation. patient tolerated OOB for lunch, no further emesis. assisted back to bed & suppository given per order. 1 lisinopril tablet found in bedding after OOB, destroyed via cactus. b/p 126/60, pulse 77. no ASE.
[2021-05-12] MEDS: ONDANSETRON 4 MG/2 ML INJ IV (19:16)
[2021-05-12] MEDS: ATORVASTATIN 20 MG TABLET 10 MG PO (20:55)
[2021-05-13] VITALS (12 sets, daily range): BP systolic 118–152; BP diastolic 64–76; PULSE 74–89; RESP 14–18; TEMP 35.8–36.7; O2SAT 90–97
[2021-05-13] MEDS: PIPERACILLIN/TAZO 3.375 GM in SODIUM CHLORIDE 0.9% 100 ML 25 ML IV ×4 (01:02→20:31)
[2021-05-13] MEDS: ONDANSETRON 4 MG/2 ML INJ IV (01:34)
--- NOTE | 2021-05-13 01:52 | PC.NURSE ---
Addendum entered by Georgette Norton R.N. 05/13/21 03:51: [employer] Machine Operator Note 05/13-299 Patient bladder scanned with volume of 200. Patient assisted to bathroom with oncoming nurse Elizabeth. Patient unable to void. Patient with emesis of dark green matter of 350 when getting into bed, total of 600ml in the last 12hrs. Dr Yin paged and updated on patient condition. VTORB to insert FC, NG, x-ray for placement and IV Protonix. NG/FC placed at bedside with HERBER Johnson. Other orders carried out by this RN and oncoming nurse. Will continue to monitor. Original Note: Evening Shift Note 05/12 Patient with 250 emesis post dinner, Zofran given with no further nausea/emesis this shift. No void 8hr past landon removal, patient bladder scanned and volume of 100cc in bladder, VSS, patient hemodynamically stable at this moment. Patient declining to use urinal at this time. Per Dr Yin order, this RN to restart fluid PIV fluids in decrease in oral intake and output. PIV fluids restarted at 2100, LR at 125 per MAR. Will continue to monitor.
--- NOTE | 2021-05-13 03:24 | DI.RAD.S_ITS ---
PROCEDURE: XR CHEST 1V INDICATIONS: NG tube placement TECHNIQUE: One view of the chest was acquired. COMPARISON: [facility], CR, XR ABDOMEN 1V, 05/13/2021, 3:46. [facility], CT, CT ABDOMEN PELVIS W CON, 05/10/2021, 12:32. FINDINGS: Surgical changes and devices: The tip of the gastric tube is seen overlying the mid stomach. The side hole is seen just above the level of the diaphragm. Lungs and pleura: An incomplete inspiratory result is noted, causing a crowded appearance to the lung markings. No focal infiltrates are seen. No pneumothorax or significant pleural effusions are seen. Mediastinum: Mediastinal contours appear normal. Heart size is at the upper limits of normal. Bones and chest wall: No suspicious bony lesions. Age-appropriate bony degenerative changes are seen. Overlying soft tissues appear unremarkable. IMPRESSION: The tip of the gastric tube is seen overlying the mid stomach, with the side hole seen just above the level of the diaphragm. Please consider tube advancement. Note: No significant discrepancy from the preliminary report. Dictated by: Yehuda Lerma M.D. on 05/13/2021 at 6:37 Approved by: Yehuda Lerma M.D. on 05/13/2021 at 6:39
--- NOTE | 2021-05-13 03:24 | DI.RAD.S_ITS ---
PROCEDURE: XR ABDOMEN 1V INDICATIONS: NG tube placement TECHNIQUE: One view of the abdomen acquired. COMPARISON: [facility], CR, XR CHEST 1V, 05/13/2021, 3:46. [facility], CT, CT ABDOMEN PELVIS W CON, 05/10/2021, 12:32. FINDINGS: Surgical changes and devices: A gastric tube is seen with the tip overlying the mid stomach. The side hole is seen just above the level of the diaphragm. Bowel: Prominent loops of gas-filled small bowel are seen, which measure up to 4 cm. Soft tissues: No suspicious abdominal calcifications. Visualized solid organ contours appear normal in size. Bones: No suspicious bony lesions. Age-appropriate bony degenerative changes are seen. IMPRESSION: Abnormally prominent, gas-filled loops of small bowel are seen. Ileus is suspected. The tip of the gastric tube is seen overlying the mid stomach, with the side hole above the level of the diaphragm. Recommended advancement. Note: No significant discrepancy from the preliminary report. Dictated by: Yehuda Lerma M.D. on 05/13/2021 at 6:39 Approved by: Yehuda Lerma M.D. on 05/13/2021 at 6:41
--- NOTE | 2021-05-13 05:12 | PC.NURSE ---
NG placed at approx.. 0330-auscultated for tube placement-audible air flow in stomach with piston syringe and immediate return to suction of dark to black/brown coffee-marcus appearing drainage of approx. 650mls output. Pt tolerated placement well. Prior to placing NG-bowel tones not present, post insertion vague all quadrant hypoactive bowel tones. NG to LIS. Per Radiology recommendation advanced NG 8-10cm which Pt tolerated well. [place] also placed with immediate return of approx. 200mls dark yellow urine. Pt tolerated both procedures well and is now resting comfortably with head at 30 degrees and bed alarm on for safety. Pt denies needs at this time.
[2021-05-13] MEDS: KETOROLAC 30 MG/ML VIAL 15 MG IV ×4 (05:22→21:12)
[2021-05-13 06:06] LABS: Add Manual Diff / Slide Review NO; Basophils Absolute Auto 100 /uL (0-100); Basophils Percent Auto 0.4 % (0-2); Eosinophils Absolute Auto 100 /uL (0-450); Eosinophils Percent Auto 0.4 % (2-4); Hematocrit 38.6 % (41-53); Hemoglobin 12.8 g/dL (13.5-17.5); Lymphocytes Absolute Auto 1100 /uL (1100-4500); Lymphocytes Percent Auto 7.4 % (25-40); Mean Corpuscular HGB Conc 33.2 % (30-36); Mean Corpuscular Hemoglobin 29.6 PG (26-34); Mean Corpuscular Volume 89.4 fL (80-100); Monocytes Absolute Auto 900 /uL (0-900); Monocytes Percent Auto 6.5 % (3-14); Neutrophils Absolute Auto 12000 /uL (1500-7000); Neutrophils Percent Auto 85.3 % (50-75); Platelet Count 293 X10^3/uL (150-400); Red Blood Cell Count 4.32 X10^6/uL (4.5-5.9); Red Cell Distribution Width 13.6 % (11.6-14.8); White Blood Cell Count 14.1 X10^3/uL (4.5-11.0)
[2021-05-13 06:34] LABS: Procalcitonin 0.65 ng/mL (<0.5)
[2021-05-13] MEDS: LACTATED RINGERS 1,000 ML 125 ML IV (06:51)
[2021-05-13] MEDS: MORPHINE 4 MG/ML INJ IV (06:56)
[2021-05-13] MEDS: ENOXAPARIN 40 MG/0.4 ML SYRINGE SUBCUT (09:25)
[2021-05-13] MEDS: PANTOPRAZOLE 40 MG VIAL 20 MG IV (09:25)
--- NOTE | 2021-05-13 09:28 | PT-IP ANOTE ---
AM-pt refused PT due to lack of sleep and feeling exhausted. Will check back later.
--- NOTE | 2021-05-13 10:38 | P.PN_ITS ---
Subjective Subjective Date Patient Seen: 05/13/21 Time Patient Seen: 10:39 Interval history: Multiple episodes of emesis overnight. Ab XR dilated loops SB. NGT placed several hundred ml bilious output. Feels much better after tube placement. Urinary retention landon placed. Exam Vital Signs (past 8 hours): - 05/13/21 04:00 05/13/21 04:05 05/13/21 08:30 Temperature 97.0 F L 97.6 F Pulse Rate 74 89 Respiratory Rate 18 14 Blood Pressure 143/76 H 121/65 Pulse Oximetry 91 94 91 05/13/21 09:08 05/13/21 09:12 Temperature Pulse Rate Respiratory Rate Blood Pressure Pulse Oximetry 93 93 Oxygen Delivery Method Room Air Oxygen Flow Rate 0 Narrative Exam Narrative: Gen-Elderly man no acute distress Abdomen-RLQ incision CDI. Compressible moderately distended. NGT with bilious output + coffe grounds Objective Labs Result Diagrams: 05/13/21 05:42 05/11/21 06:17 Labs: Laboratory Results - last 24 hr 05/13/21 05/13/21 05:42 05:42 WBC 14.1 H RBC 4.32 L Hgb 12.8 L Hct 38.6 L MCV 89.4 MCH 29.6 MCHC 33.2 RDW 13.6 Plt Count 293 Neut % (Auto) 85.3 H Lymph % (Auto) 7.4 L [place] % (Auto) 6.5 Eos % (Auto) 0.4 L Baso % (Auto) 0.4 Neut # (Auto) 34039 H Lymph # (Auto) 1100 [place] # (Auto) 900 Eos # (Auto) 100 Baso # (Auto) 100 Procalcitonin 0.65 H PFSH Medical History (Updated 05/11/21 @ 20:15 by Oleksandr John MD) Elevated cholesterol Hypertension Surgical History S/P operative procedure on shoulder S/P operative procedure on wrist Social History household members: spouse and family Smoking Status: Never smoker alcohol intake: never Assessment & Plan Post-op Postoperative Procedures: Procedures Operation Date: 05/10/21 18:15 Actual Procedure Side Surgeon p Laparoscopic Appendectomy Convert to Open Oleksandr John MD Postoperative status narrative: 80M POD 3 sp appendectomy for perforated appendicitis. Postoperative ileus -Continue NGT until complete return of bowel function -NPO ok for ice chips and sips of water with tube in place -IVF -Protonix -K replacement Perforated appendicitis -Continue Zosyn SCDs + pLovenox Ambulate Quality VTE Deep Vein Thrombosis/Pulmonary Embolism Present on Admission: No
--- NOTE | 2021-05-13 11:32 | PT.IPTN ---
Current Diagnoses Acute appendicitis with localized peritonitis, without perforation or gangrene (05/10/21) Acute appendicitis with perforation and localized peritonitis, with abscess (05/10/21) Surgery Performed Operation Date: 05/10/21 18:15 Actual Procedures p Laparoscopic Appendectomy Convert to Open - Oleksandr John MD Physical Therapy Treatment Note M2 PT-IP Current Condition Start: 05/12/21 13:52 Freq: NEEDED Status: Active Protocol: Document 05/12/21 11:00 AB (Rec: 05/12/21 14:03 AB [id number]) Physical Therapy Current Condition Current Condition Evaluation Date 05/12/21 Treatment Diagnosis s/p appendectomy; difficulty in walking Onset Date 05/10/21 Precautions Abdominal Surgery Precautions Log Roll,Lifting Restrictions, Gait Belt above Incisional Area M3 PT-IP Subjective Start: 05/12/21 13:52 Freq: NEEDED Status: Active Protocol: Document 05/13/21 11:26 LJ (Rec: 05/13/21 11:32 LJ [id number]) Subjective Physical Therapy Visit Type Type Treatment Note Visit Start Time 11:12 Visit Stop Time 11:25 Total Visit Minutes 13 Notes Pt wanting to get up in chair Number of FAMILY ASSISTANT Visits 1 Physical Therapy Visit Comments Patient Comments pt is agreeable to do PT Therapy Pain Assessment Pain When Pain Assessed At Rest Pain Present Pain Present Denied Pain M4 PT-IP Mobility and Gait Start: 05/12/21 13:52 Freq: NEEDED Status: Active Protocol: Document 05/13/21 11:26 LJ (Rec: 05/13/21 11:32 LJ [id number]) PT-Bed Mobility Assessment Rolling Type of Rolling Log Rolling Level of Assist Standby Assistance Supine to Sit Supine to Sit Standby Assistance,Bedrails PT-Transfer Assessment Sit to and From Stand Sit to and from Stand Contact Guard Assistance,1 Person Assistance,Use of Upper Extremities Equipment Transfer Assistive Device Gait Belt,Front Wheeled Walker Orthotic/Prosthetic Devices or Brace: No Transfers Transfer Destination Chair Transfer Technique ambulated Transfer Ability Level of Assist Contact Guard Assistance Comments Mobility Comments Pt completed all bed mobility SBA other than assist with lines. Pt stood SBA and ambulated around end of bed with SBA and assist with lines . Sat in chair then performed x5 sit<>stand for LE exercise. Pt used push off with UEs for standing and return to sitting. Pt left in chair with call light in hand. Gait Assessment Gait Gait Assistance Required: Contact Guard Assist Distance (Feet) 25 Able to Maintain Weight Bearing Status Yes During Gait Assistive Devices Assistive Device Gait Belt,Front Wheeled Walker Orthotic/Prosthetic Devices or Brace: No Gait Deviations General Gait Pattern Decreased Stride Length, Decreased Feet Clearance Factors Limiting Gait Function Factors Limiting Gait Function Decreased Activity Tolerance, Decreased Strength,Limited Range of Motion,Pain,Poor Balance M5 PT-IP Objective Assessments Start: 05/12/21 13:52 Freq: NEEDED Status: Active Protocol: Document 05/12/21 11:00 AB (Rec: 05/12/21 14:03 AB [id number]) Orientation Orientation/Cognition Level of Alertness Alert Orientation Name,Place,Situation Language Function Ability No Deficits Noted Safety Awareness Understands Safety Issues Memory Description No Deficits Noted Gross Range of Motion Lower Extremity ROM Assessment Within Functional Limits Strength Comments Strength Comments RLE : 4-/5 LLE: 4/5 Coordination Assessment Gross Coordination Gross Coordination WNL Sensation Assessment Sensation Gross Sensation WNL Muscle Tone Muscle Tone WNL Yes M6 PT-IP Treatment Start: 05/12/21 13:52 Freq: NEEDED Status: Active Protocol: Document 05/13/21 11:26 LJ (Rec: 05/13/21 11:32 LJ [id number]) Physical Therapy Treatment Education Education Provided Precautions,Safety M7 PT-IP Assessment and Plan Start: 05/12/21 13:52 Freq: NEEDED Status: Active Protocol: Document 05/13/21 11:26 LJ (Rec: 05/13/21 11:32 LJ [id number]) PT Summary Assessment and Plan Potential Rehabilitation Potential Good Status of Condition at Evaluation Evolving Summary Impairments Pain,ROM,Strength,Balance, Coordination,Sensation,Bed Mobility,Transfers,Gait, Activity Tolerance Assessment Summary Pt requiring SBA for bed mobility other than assisting with lines and [place]. CGA and assist with lines for ambulation around room. Will continue to assess progress. Mobility limited due to NG. Goals Bed Mobility Goal Independent Transfer Goal Independent,Front Wheeled Walker Gait Goal Independent,Front Wheel Walker Gait Distance 250 Other Goals ambulation without AD 250 ft SBA Days to Meet Goals 10 Frequency of Treatment Frequency Of Treatment Once a Day Treatment Plan Physical Therapy Treatment Plan Bed Mobility Training,Transfer Training,Gait Training, Therapeutic Exercise,Balance Retraining,Post Op Education, Discharge Planning,Hot or Cold Pack,Neuromuscular Re-ed, Coordination Retraining,Manual Therapy Precautions Abdominal Surgery Precautions Log Roll,Lifting Restrictions, Gait Belt above Incisional Area Recommendations To Nursing Amount of Assist Needed 1 Person Assist Discharge Recommendations PT Discharge Recommendations Home with Assistance Transportation Needs at Discharge Private Vehicle
--- NOTE | 2021-05-13 11:40 | PT.IPTN ---
Current Diagnoses Acute appendicitis with localized peritonitis, without perforation or gangrene (05/10/21) Acute appendicitis with perforation and localized peritonitis, with abscess (05/10/21) Surgery Performed Operation Date: 05/10/21 18:15 Actual Procedures p Laparoscopic Appendectomy Convert to Open - Oleksandr John MD Physical Therapy Treatment Note M2 PT-IP Current Condition Start: 05/12/21 13:52 Freq: NEEDED Status: Active Protocol: Document 05/12/21 11:00 AB (Rec: 05/12/21 14:03 AB [id number]) Physical Therapy Current Condition Current Condition Evaluation Date 05/12/21 Treatment Diagnosis s/p appendectomy; difficulty in walking Onset Date 05/10/21 Precautions Abdominal Surgery Precautions Log Roll,Lifting Restrictions, Gait Belt above Incisional Area M3 PT-IP Subjective Start: 05/12/21 13:52 Freq: NEEDED Status: Active Protocol: Document 05/13/21 11:26 LJ (Rec: 05/13/21 11:32 LJ [id number]) Subjective Physical Therapy Visit Type Type Treatment Note Visit Start Time 11:12 Visit Stop Time 11:25 Total Visit Minutes 13 Notes Pt wanting to get up in chair Number of LICENSED PRACTICAL NURSE CLINIC NURSE Visits 1 Physical Therapy Visit Comments Patient Comments pt is agreeable to do PT Therapy Pain Assessment Pain When Pain Assessed At Rest Pain Present Pain Present Denied Pain M4 PT-IP Mobility and Gait Start: 05/12/21 13:52 Freq: NEEDED Status: Active Protocol: Document 05/13/21 11:26 LJ (Rec: 05/13/21 11:32 LJ [id number]) PT-Bed Mobility Assessment Rolling Type of Rolling Log Rolling Level of Assist Standby Assistance Supine to Sit Supine to Sit Standby Assistance,Bedrails PT-Transfer Assessment Sit to and From Stand Sit to and from Stand Contact Guard Assistance,1 Person Assistance,Use of Upper Extremities Equipment Transfer Assistive Device Gait Belt,Front Wheeled Walker Orthotic/Prosthetic Devices or Brace: No Transfers Transfer Destination Chair Transfer Technique ambulated Transfer Ability Level of Assist Contact Guard Assistance Comments Mobility Comments Pt completed all bed mobility SBA other than assist with lines. Pt stood SBA and ambulated around end of bed with SBA and assist with lines . Sat in chair then performed x5 sit<>stand for LE exercise. Pt used push off with UEs for standing and return to sitting. Pt left in chair with call light in hand. Gait Assessment Gait Gait Assistance Required: Contact Guard Assist Distance (Feet) 25 Able to Maintain Weight Bearing Status Yes During Gait Assistive Devices Assistive Device Gait Belt,Front Wheeled Walker Orthotic/Prosthetic Devices or Brace: No Gait Deviations General Gait Pattern Decreased Stride Length, Decreased Feet Clearance Factors Limiting Gait Function Factors Limiting Gait Function Decreased Activity Tolerance, Decreased Strength,Limited Range of Motion,Pain,Poor Balance M5 PT-IP Objective Assessments Start: 05/12/21 13:52 Freq: NEEDED Status: Active Protocol: Document 05/12/21 11:00 AB (Rec: 05/12/21 14:03 AB [id number]) Orientation Orientation/Cognition Level of Alertness Alert Orientation Name,Place,Situation Language Function Ability No Deficits Noted Safety Awareness Understands Safety Issues Memory Description No Deficits Noted Gross Range of Motion Lower Extremity ROM Assessment Within Functional Limits Strength Comments Strength Comments RLE : 4-/5 LLE: 4/5 Coordination Assessment Gross Coordination Gross Coordination WNL Sensation Assessment Sensation Gross Sensation WNL Muscle Tone Muscle Tone WNL Yes M6 PT-IP Treatment Start: 05/12/21 13:52 Freq: NEEDED Status: Active Protocol: Document 05/13/21 11:26 LJ (Rec: 05/13/21 11:32 LJ [id number]) Physical Therapy Treatment Education Education Provided Precautions,Safety M7 PT-IP Assessment and Plan Start: 05/12/21 13:52 Freq: NEEDED Status: Active Protocol: Document 05/13/21 11:26 LJ (Rec: 05/13/21 11:32 LJ [id number]) PT Summary Assessment and Plan Potential Rehabilitation Potential Good Status of Condition at Evaluation Evolving Summary Impairments Pain,ROM,Strength,Balance, Coordination,Sensation,Bed Mobility,Transfers,Gait, Activity Tolerance Assessment Summary Pt requiring SBA for bed mobility other than assisting with lines and [place]. CGA and assist with lines for ambulation around room. Will continue to assess progress. Mobillity limited due to NG. Goals Bed Mobility Goal Independent Transfer Goal Independent,Front Wheeled Walker Gait Goal Independent,Front Wheel Walker Gait Distance 250 Other Goals ambulation without AD 250 ft SBA Days to Meet Goals 10 Frequency of Treatment Frequency Of Treatment Once a Day Treatment Plan Physical Therapy Treatment Plan Bed Mobility Training,Transfer Training,Gait Training, Therapeutic Exercise,Balance Retraining,Post Op Education, Discharge Planning,Hot or Cold Pack,Neuromuscular Re-ed, Coordination Retraining,Manual Therapy Precautions Abdominal Surgery Precautions Log Roll,Lifting Restrictions, Gait Belt above Incisional Area Recommendations To Nursing Amount of Assist Needed 1 Person Assist Discharge Recommendations PT Discharge Recommendations Home with Assistance Transportation Needs at Discharge Private Vehicle
[2021-05-13] MEDS: PANTOPRAZOLE 40 MG VIAL IV (11:43)
--- NOTE | 2021-05-13 14:01 | CM.DPC ---
DCP: continued. Pt now back on NPO and with NGT placed, hundreds of CCs output. Dr. Yin states this will continue until full return of bowel function. PT is working with pt and he is progressing in that way. No clear note today on the wound care needs. P: still looks like probable d/c to home setting with family support and likely HH services. DCP team to follow.
[2021-05-13] MEDS: POTASSIUM CHLORIDE IN WATER 10 MEQ/100 ML PIGGYBACK 100 MEQ IV ×4 (14:31→18:30)
[2021-05-14] VITALS (13 sets, daily range): BP systolic 146–181; BP diastolic 69–87; PULSE 70–87; RESP 15–18; TEMP 36.3–37.1; O2SAT 91–97
[2021-05-14] MEDS: LACTATED RINGERS 1,000 ML 125 ML IV ×3 (01:01→20:43)
[2021-05-14] MEDS: PIPERACILLIN/TAZO 3.375 GM in SODIUM CHLORIDE 0.9% 100 ML 25 ML IV ×2 (01:01→07:55)
[2021-05-14 06:20] LABS: Estimated Glomerular Filt Rate > 60.0 mL/min (>60)
--- NOTE | 2021-05-14 07:39 | DI.RAD.S_ITS ---
PROCEDURE: XR ABDOMEN 1V INDICATIONS: ileus TECHNIQUE: One view of the abdomen acquired. COMPARISON: [facility], CR, XR ABDOMEN 1V, 05/13/2021, 3:46. FINDINGS: Surgical changes and devices: Enteric tube tip is in the region of proximal stomach lumen just distal to GE junction.. Bowel: Moderate air distended bowel loops are again seen throughout the abdomen with mild fecal stasis seen in the colon extending to the rectum. No gross peritoneal free air. Soft tissues: No suspicious abdominal calcifications. Visualized solid organ contours appear normal in size. Bones: No suspicious bony lesions. IMPRESSION: No significant interval changes from previous day. Suggestion of persistent ileus versus moderate grade distal small bowel obstruction. No gross free air. Dictated by: Miguel Ángel Lyles M.D. on 05/14/2021 at 9:01 Approved by: Miguel Ángel Lyles M.D. on 05/14/2021 at 9:02
[2021-05-14 08:42] LABS: Add Manual Diff / Slide Review NO; Basophils Absolute Auto 100 /uL (0-100); Basophils Percent Auto 0.8 % (0-2); Eosinophils Absolute Auto 500 /uL (0-450); Hematocrit 38.6 % (41-53); Hemoglobin 12.8 g/dL (13.5-17.5); Lymphocytes Absolute Auto 1200 /uL (1100-4500); Lymphocytes Percent Auto 12.1 % (25-40); Mean Corpuscular HGB Conc 33.2 % (30-36); Mean Corpuscular Hemoglobin 29.6 PG (26-34); Mean Corpuscular Volume 89.3 fL (80-100); Monocytes Absolute Auto 800 /uL (0-900); Neutrophils Absolute Auto 7500 /uL (1500-7000); Neutrophils Percent Auto 74.1 % (50-75); Platelet Count 335 X10^3/uL (150-400); Red Blood Cell Count 4.32 X10^6/uL (4.5-5.9); Red Cell Distribution Width 13.7 % (11.6-14.8); White Blood Cell Count 10.1 X10^3/uL (4.5-11.0)
[2021-05-14 08:56] LABS: BUN Creatinine Ratio 20.7 (6-22); Blood Urea Nitrogen 18 mg/dL (9-20); Calcium 8.1 mg/dL (8.4-10.2); Carbon Dioxide 29 mmol/L (22-32); Chloride 102 mmol/L (98-107); Estimated Glomerular Filt Rate > 60.0 mL/min (>60); Glucose 82 mg/dL (80-110); HEMOLYSIS < 15 (0-50); Potassium 3.6 mmol/L (3.4-5.1); Sodium 134 mmol/L (137-145)
[2021-05-14] MEDS: ENOXAPARIN 40 MG/0.4 ML SYRINGE SUBCUT (09:12)
[2021-05-14] MEDS: PANTOPRAZOLE 40 MG VIAL IV (09:13)
[2021-05-14] MEDS: KETOROLAC 30 MG/ML VIAL 15 MG IV ×3 (09:13→21:44)
[2021-05-14] MEDS: levoFLOXacin 750 MG/150 ML PIGGYBACK 100 MG IV (09:45)
--- NOTE | 2021-05-14 10:07 | P.PN_ITS ---
Subjective Subjective Date Patient Seen: 05/14/21 Time Patient Seen: 10:13 Interval history: no acute events. small amount of flatus, no BM, feels better then yesterday Exam Vital Signs (past 8 hours): - 05/14/21 05:00 05/14/21 05:34 05/14/21 07:31 Temperature 97.3 F L 98.3 F Pulse Rate 79 87 Respiratory Rate 16 15 Blood Pressure 148/69 H 153/71 H Pulse Oximetry 92 92 91 05/14/21 08:45 05/14/21 09:10 Temperature Pulse Rate 70 Respiratory Rate 16 Blood Pressure Pulse Oximetry 92 94 Oxygen Delivery Method Room Air Oxygen Flow Rate 0 Narrative Exam Narrative: Gen-elderly male alert oriented no distress abdomen-soft, moderately distended. Incisions CDI Objective Labs Result Diagrams: 05/14/21 08:27 05/14/21 08:27 Labs: Laboratory Results - last 24 hr 05/14/21 05/14/21 05/14/21 05:26 08:27 08:27 WBC 10.1 RBC 4.32 L Hgb 12.8 L Hct 38.6 L MCV 89.3 MCH 29.6 MCHC 33.2 RDW 13.7 Plt Count 335 Neut % (Auto) 74.1 Lymph % (Auto) 12.1 L [place] % (Auto) 8.0 Eos % (Auto) 5.0 H Baso % (Auto) 0.8 Neut # (Auto) 7500 H Lymph # (Auto) 1200 [place] # (Auto) 800 Eos # (Auto) 500 H Baso # (Auto) 100 Sodium 134 L Potassium 3.6 Chloride 102 Carbon Dioxide 29 BUN 18 Creatinine 0.93 0.87 Estimated GFR > 60.0 > 60.0 BUN/Creatinine Ratio 20.7 Glucose 82 Calcium 8.1 L [facility] Medical History (Updated 05/11/21 @ 20:15 by Oleksandr John MD) Elevated cholesterol Hypertension Surgical History S/P operative procedure on shoulder S/P operative procedure on wrist Social History household members: spouse and family Smoking Status: Never smoker alcohol intake: never Assessment & Plan Post-op Postoperative Procedures: Procedures Operation Date: 05/10/21 18:15 Actual Procedure Side Surgeon p Laparoscopic Appendectomy Convert to Open Oleksandr John MD Postoperative status narrative: 80-year-old man postoperative day 6 status post appendectomy. Microbiology reviewed changed antibiotics from Zosyn to levofloxacin for improved coverage Postoperative ileus. abdominal x-ray reviewed from this morning demonstrates dilated loops of small bowel better then previous. Continue nasogastric tube, ok for ice chips and sips of water. Await return of bowel function PT OOB to chair Lovenox and SCDs [place] for urinary retention Quality VTE Deep Vein Thrombosis/Pulmonary Embolism Present on Admission: No
[2021-05-14] MEDS: POTASSIUM CHLORIDE IN WATER 10 MEQ/100 ML PIGGYBACK 100 MEQ IV ×4 (11:32→14:38)
--- NOTE | 2021-05-14 12:03 | PT.IPTN ---
Current Diagnoses Acute appendicitis with localized peritonitis, without perforation or gangrene (05/10/21) Acute appendicitis with perforation and localized peritonitis, with abscess (05/10/21) Surgery Performed Operation Date: 05/10/21 18:15 Actual Procedures p Laparoscopic Appendectomy Convert to Open - Oleksandr John MD Physical Therapy Treatment Note M2 PT-IP Current Condition Start: 05/12/21 13:52 Freq: NEEDED Status: Active Protocol: Document 05/12/21 11:00 AB (Rec: 05/12/21 14:03 AB [id number]) Physical Therapy Current Condition Current Condition Evaluation Date 05/12/21 Treatment Diagnosis s/p appendectomy; difficulty in walking Onset Date 05/10/21 Precautions Abdominal Surgery Precautions Log Roll,Lifting Restrictions, Gait Belt above Incisional Area M3 PT-IP Subjective Start: 05/12/21 13:52 Freq: NEEDED Status: Active Protocol: Document 05/14/21 11:49 AW (Rec: 05/14/21 12:03 AW [id number]) Subjective Physical Therapy Visit Type Type Treatment Note Visit Start Time 11:32 Visit Stop Time 11:49 Total Visit Minutes 17 Number of FOLDER MACHINE ADJUSTER Visits 0 Physical Therapy Visit Comments Patient Comments Pt willing to participate with PT. I guess I'd better use it before I lose it. Therapy Pain Assessment Pain When Pain Assessed At Rest Pain Present Pain Present Pain Reported Location rlq Scale Used not quantified Pain Management Techniques Distraction,Modification of Treatment,Re-positioning, Timing of Activity with Medications M4 PT-IP Mobility and Gait Start: 05/12/21 13:52 Freq: NEEDED Status: Active Protocol: Document 05/14/21 11:49 AW (Rec: 05/14/21 12:03 AW [id number]) PT-Bed Mobility Assessment Rolling Type of Rolling Log Rolling Level of Assist Standby Assistance Supine to Sit Supine to Sit Standby Assistance PT-Transfer Assessment Sit to and From Stand Sit to and from Stand Standby Assistance,1 Person Assistance,Use of Upper Extremities Equipment Transfer Assistive Device Gait Belt,Front Wheeled Walker Orthotic/Prosthetic Devices or Brace: No Transfers Transfer Destination Chair Transfer Technique ambulated Transfer Ability Level of Assist Standby Assistance,Contact Guard Assistance Comments Mobility Comments RN was in room as PT arrived. She took NG off suction for pt to mobilize. Pt completed all bed mobility SBA and then stood with FWW SBA. He agreed to ambulate in the halls, walking 220 feet with FWW SBA and another 80 feet without AD CGA. Gait was steady but slow . On return to the room, pt transferred to bedside chair and agreed to sit up. He also agreed to use the call light for all mobility needs. Notified RN to return NG to suction. Gait Assessment Gait Gait Assistance Required: Standby Assistance,Contact Guard Assist Distance (Feet) 300 Able to Maintain Weight Bearing Status Yes During Gait Assistive Devices Assistive Device None,Gait Belt,Front Wheeled Walker Orthotic/Prosthetic Devices or Brace: No Gait Deviations General Gait Pattern Decreased Stride Length, Decreased Feet Clearance Factors Limiting Gait Function Factors Limiting Gait Function Decreased Activity Tolerance, Decreased Strength,Limited Range of Motion,Pain Comments Gait Comments See mobility comments for details. SBA for gait with FWW , CGA for gait without AD. PT-Balance Assessment Sitting Balance and Reactions Static Sitting Balance Ability Normal Dynamic Sitting Balance Ability Good Standing Balance and Reactions Static Standing Balance Ability Good Dynamic Standing Balance Ability Fair Device Used FWW M5 PT-IP Objective Assessments Start: 05/12/21 13:52 Freq: NEEDED Status: Active Protocol: Document 05/12/21 11:00 AB (Rec: 05/12/21 14:03 AB [id number]) Orientation Orientation/Cognition Level of Alertness Alert Orientation Name,Place,Situation Language Function Ability No Deficits Noted Safety Awareness Understands Safety Issues Memory Description No Deficits Noted Gross Range of Motion Lower Extremity ROM Assessment Within Functional Limits Strength Comments Strength Comments RLE : 4-/5 LLE: 4/5 Coordination Assessment Gross Coordination Gross Coordination WNL Sensation Assessment Sensation Gross Sensation WNL Muscle Tone Muscle Tone WNL Yes M6 PT-IP Treatment Start: 05/12/21 13:52 Freq: NEEDED Status: Active Protocol: Document 05/14/21 11:49 AW (Rec: 05/14/21 12:03 AW [id number]) Physical Therapy Treatment Education Education Provided Precautions,Safety M7 PT-IP Assessment and Plan Start: 05/12/21 13:52 Freq: NEEDED Status: Active Protocol: Document 05/14/21 11:49 AW (Rec: 05/14/21 12:03 AW [id number]) PT Summary Assessment and Plan Summary Impairments Pain,ROM,Strength,Balance, Coordination,Sensation,Bed Mobility,Transfers,Gait, Activity Tolerance Progress Towards Goals Progressing Toward Goals Assessment Summary Pt improved his mobility this date with increased gait distance and a trial of gait without AD. He is progressing toward goals. PT anticipates he will be safe to discharge home with assist once medically stable. Goals Bed Mobility Goal Independent Transfer Goal Independent,Front Wheeled Walker Gait Goal Independent,Front Wheel Walker Gait Distance 250 Other Goals ambulation without AD 250 ft SBA Days to Meet Goals 10 Frequency of Treatment Frequency Of Treatment Once a Day Treatment Plan Physical Therapy Treatment Plan Bed Mobility Training,Transfer Training,Gait Training, Therapeutic Exercise,Balance Retraining,Post Op Education, Discharge Planning,Hot or Cold Pack,Neuromuscular Re-ed, Coordination Retraining,Manual Therapy Other Recommendations and Next Treatment gait with and without FWW Focus Precautions Abdominal Surgery Precautions Log Roll,Lifting Restrictions, Gait Belt above Incisional Area Recommendations To Nursing Amount of Assist Needed Standby Assistance Discharge Recommendations PT Discharge Recommendations Home with Assistance Transportation Needs at Discharge Private Vehicle
--- NOTE | 2021-05-14 13:21 | CM.DPC ---
DCP Cont: Checked in with patient. He was sitting next to his bed, NG tube in place. Introduced self and role. Confirmed with patient that he is independent at his baseline. He resides here in [place] with his spouse, Marge. He also has a son that lives with him. He is pleasant, alert and oriented. Patient came in with ruptured appendix. P: DCP to continue to follow. Plan is for home when patient is medically stable, when bowel function returns. Rosette Louis RN/Senior Reliability Engineer
--- NOTE | 2021-05-14 22:44 | PC.NURSE ---
pt NG tube output was bright red tinge, 250cc. notified Dr. Yin. no new orders. pt was up in his chair for over an hour. he passed small amount of gas for esperanza shift. his abdomen is distended and soft. bowel tones were hypoactive. pt denied nausea.
[2021-05-15] VITALS (9 sets, daily range): BP systolic 151–183; BP diastolic 51–90; PULSE 69–79; RESP 14–18; TEMP 36.1–37.6; O2SAT 91–94
--- NOTE | 2021-05-15 00:19 | PC.NURSE ---
Addendum entered by Tereza Fregoso R.N. 05/15/21 06:34: Dr Yin informed of glucose on morning lab draw was only 74. New order received to change IVF to D5LR @ 50cc/h Original Note: Patient is alert and oriented. Breath sounds CTA with RA sat of 93%. HRR. BP has been trending higher but improved now at 153/70. Denies nausea. NG patent to intermittent suction. BT absent in right quads and hypoactive/tympanic in left quads. Abdomen is distended and tender but soft. Patient states he has passed some flatus but no BM since 05/09. Indwelling catheter is patent; urine is clear yellow. Is able to move himself in bed. Gait not assessed but evening RN reported patient was up to chair earlier with walker and SBA; patient states he feels generalized weakness. Dressings to abdomen are CDI. Denies pain. Wearing bilateral CLIARE stockings and calf SCD's. Fall risk score is moderate and bed alarm is activated.
[2021-05-15] MEDS: KETOROLAC 30 MG/ML VIAL 15 MG IV ×4 (03:42→21:54)
[2021-05-15] MEDS: LACTATED RINGERS 1,000 ML 125 ML IV (04:51)
[2021-05-15 05:45] LABS: Add Manual Diff / Slide Review NO; Basophils Absolute Auto 100 /uL (0-100); Basophils Percent Auto 0.9 % (0-2); Eosinophils Absolute Auto 500 /uL (0-450); Eosinophils Percent Auto 5.5 % (2-4); Hematocrit 36.6 % (41-53); Hemoglobin 12.1 g/dL (13.5-17.5); Lymphocytes Absolute Auto 1300 /uL (1100-4500); Lymphocytes Percent Auto 15.2 % (25-40); Mean Corpuscular HGB Conc 33.2 % (30-36); Mean Corpuscular Hemoglobin 29.6 PG (26-34); Mean Corpuscular Volume 89.2 fL (80-100); Monocytes Absolute Auto 800 /uL (0-900); Monocytes Percent Auto 9.5 % (3-14); Neutrophils Absolute Auto 5800 /uL (1500-7000); Neutrophils Percent Auto 68.9 % (50-75); Platelet Count 322 X10^3/uL (150-400); Red Cell Distribution Width 13.2 % (11.6-14.8); White Blood Cell Count 8.3 X10^3/uL (4.5-11.0)
[2021-05-15 05:58] LABS: BUN Creatinine Ratio 21.6 (6-22); Blood Urea Nitrogen 16 mg/dL (9-20); Calcium 8.3 mg/dL (8.4-10.2); Carbon Dioxide 24 mmol/L (22-32); Chloride 106 mmol/L (98-107); Estimated Glomerular Filt Rate > 60.0 mL/min (>60); Glucose 74 mg/dL (80-110); HEMOLYSIS < 15 (0-50); Potassium 3.9 mmol/L (3.4-5.1); Sodium 135 mmol/L (137-145)
[2021-05-15] MEDS: DEXTROSE 5%-LACTATED RINGERS 1,000 ML 50 ML IV (06:32)
[2021-05-15] MEDS: ENOXAPARIN 40 MG/0.4 ML SYRINGE SUBCUT (08:33)
[2021-05-15] MEDS: PANTOPRAZOLE 40 MG VIAL IV (08:34)
[2021-05-15] MEDS: levoFLOXacin 750 MG/150 ML PIGGYBACK 100 MG IV (08:34)
--- NOTE | 2021-05-15 10:53 | DI.RAD.S_ITS ---
PROCEDURE: XR ABDOMEN MIN 2V INDICATIONS: f/u ileus TECHNIQUE: 2 views of the abdomen were acquired. COMPARISON: [facility], CT, CT ABDOMEN PELVIS W CON, 05/10/2021, 12:32. [facility], CR, XR ABDOMEN 1V, 05/14/2021, 8:02. [facility], CR, XR ABDOMEN 1V, 05/13/2021, 3:46. FINDINGS: Surgical changes and devices: None. Bowel: No pneumoperitoneum. The bowel gas pattern is again seen to be abnormal with small bowel prominence.. Soft tissues: No masses; visualized solid organ contours appear normal in size. No suspicious abdominal calcifications. Moderate hiatal hernia behind the heart. Bones: No suspicious bony abnormalities. IMPRESSION: Esophagogastric tube side port is at the EG junction and the tip of the tube is in the gastric cardia. Recommend advancing this tube approximately 10 cm. Small bowel gas distension again noted, mild in severity. No definite subdiaphragmatic free air is found. Dictated by: Peyman Sapp M.D. on 05/15/2021 at 12:11 Approved by: Peyman Sapp M.D. on 05/15/2021 at 12:12
[2021-05-15] MEDS: metroNIDAZOLE 500 MG/100 ML PIGGYBACK 100 MG IV ×3 (11:57→23:29)
[2021-05-15] MEDS: BISACODYL 10 MG SUPP PR (12:01)
--- NOTE | 2021-05-15 12:21 | PM.PNPO.1 ---
Subjective Subjective Interval history: Patient has some vague abdominal pain. Otherwise he is feeling pretty well. He has been out of bed in chair. He has walked a little bit yesterday in the [place]. Exam Vital Signs (past 8 hours): - 05/15/21 05:47 05/15/21 08:55 05/15/21 09:25 Temperature 97.2 F L 98 F Pulse Rate 69 77 Respiratory Rate 18 17 Blood Pressure 151/59 H 164/71 H Pulse Oximetry 92 93 92 Oxygen Delivery Method Room Air Oxygen Flow Rate 0 Narrative Exam Narrative: Cooperative pleasant gentleman. Lungs are clear to auscultation with good respiratory effort. Abdomen is distended but soft. No obvious cellulitis. Wounds intact. Objective Labs Result Diagrams: 05/15/21 05:06 05/15/21 05:06 Labs: Laboratory Results - last 24 hr 05/15/21 05/15/21 05:06 05:06 WBC 8.3 RBC 4.10 L Hgb 12.1 L Hct 36.6 L MCV 89.2 MCH 29.6 MCHC 33.2 RDW 13.2 Plt Count 322 Neut % (Auto) 68.9 Lymph % (Auto) 15.2 L [place] % (Auto) 9.5 Eos % (Auto) 5.5 H Baso % (Auto) 0.9 Neut # (Auto) 5800 Lymph # (Auto) 1300 [place] # (Auto) 800 Eos # (Auto) 500 H Baso # (Auto) 100 Sodium 135 L Potassium 3.9 Chloride 106 Carbon Dioxide 24 BUN 16 Creatinine 0.74 Estimated GFR > 60.0 BUN/Creatinine Ratio 21.6 Glucose 74 L Calcium 8.3 L PFSH Medical History Elevated cholesterol Hypertension Surgical History S/P operative procedure on shoulder S/P operative procedure on wrist Social History household members: spouse and family Smoking Status: Never smoker alcohol intake: never Assessment & Plan Post-op Postoperative Procedures: Procedures Operation Date: 05/10/21 18:15 Actual Procedure Side Surgeon p Laparoscopic Appendectomy Convert to Open Oleksandr John MD Postoperative status narrative: Still appears to have an ileus based on his x-rays and clinical picture. White cell count has normalized in the diff has also nearly normalized. Postoperative plan narrative: Continue NG. Continue [place]. Added Lovenox now that there is no blood in the NG. Due to anaerobe that has grown added Flagyl. Labs in the morning. If no bowel function returns we will do small-bowel follow-through with water-soluble contrast. Quality VTE Deep Vein Thrombosis/Pulmonary Embolism Present on Admission: No
--- NOTE | 2021-05-15 15:25 | PT.IPTN ---
Current Diagnoses Acute appendicitis with localized peritonitis, without perforation or gangrene (05/10/21) Acute appendicitis with perforation and localized peritonitis, with abscess (05/10/21) Surgery Performed Operation Date: 05/10/21 18:15 Actual Procedures p Laparoscopic Appendectomy Convert to Open - Oleksandr John MD Physical Therapy Treatment Note M2 PT-IP Current Condition Start: 05/12/21 13:52 Freq: NEEDED Status: Active Protocol: Document 05/12/21 11:00 AB (Rec: 05/12/21 14:03 AB [id number]) Physical Therapy Current Condition Current Condition Evaluation Date 05/12/21 Treatment Diagnosis s/p appendectomy; difficulty in walking Onset Date 05/10/21 Precautions Abdominal Surgery Precautions Log Roll,Lifting Restrictions, Gait Belt above Incisional Area M3 PT-IP Subjective Start: 05/12/21 13:52 Freq: NEEDED Status: Active Protocol: Document 05/15/21 15:25 AB (Rec: 05/15/21 16:27 AB [id number]) Subjective Physical Therapy Visit Type Type Treatment Note Visit Start Time 15:25 Visit Stop Time 15:41 Total Visit Minutes 16 Number of CRM SYSTEM ADMINISTRATOR Visits 16 Physical Therapy Visit Comments Patient Comments pt agreed to do PT Therapy Pain Assessment Pain When Pain Assessed At Rest Pain Present Pain Present Pain Reported Location rlq Intensity 2 Scale Used Numeric (0 - 10) M4 PT-IP Mobility and Gait Start: 05/12/21 13:52 Freq: NEEDED Status: Active Protocol: Document 05/15/21 15:25 AB (Rec: 05/15/21 16:27 AB [id number]) PT-Transfer Assessment Sit to and From Stand Sit to and from Stand Standby Assistance Equipment Transfer Assistive Device Gait Belt,Front Wheeled Walker Orthotic/Prosthetic Devices or Brace: No Gait Assessment Gait Gait Assistance Required: Standby Assistance,Contact Guard Assist,1 Person Assist Distance (Feet) 600 Able to Maintain Weight Bearing Status Yes During Gait Assistive Devices Assistive Device None,Gait Belt,Front Wheeled Walker Orthotic/Prosthetic Devices or Brace: No Gait Deviations General Gait Pattern Lateral Trunk Lean Factors Limiting Gait Function Factors Limiting Gait Function Pain,Poor Balance Comments Gait Comments pt sitting on chair and agreed to do PT. nurse disconnected IV and NG tube for ambulation . pt completed sit to stand SBA and ambulated in the hallway ~ 600 ft using FWW SBA . ambulated towards his room. ambulated without AD ~ 25 ft SBA to CGA. requested to stay up on chair. positioned on chair. call light and table placed within reach. M5 PT-IP Objective Assessments Start: 05/12/21 13:52 Freq: NEEDED Status: Active Protocol: Document 05/12/21 11:00 AB (Rec: 05/12/21 14:03 AB [id number]) Orientation Orientation/Cognition Level of Alertness Alert Orientation Name,Place,Situation Language Function Ability No Deficits Noted Safety Awareness Understands Safety Issues Memory Description No Deficits Noted Gross Range of Motion Lower Extremity ROM Assessment Within Functional Limits Strength Comments Strength Comments RLE : 4-/5 LLE: 4/5 Coordination Assessment Gross Coordination Gross Coordination WNL Sensation Assessment Sensation Gross Sensation WNL Muscle Tone Muscle Tone WNL Yes M6 PT-IP Treatment Start: 05/12/21 13:52 Freq: NEEDED Status: Active Protocol: Document 05/15/21 15:25 AB (Rec: 05/15/21 16:27 AB [id number]) Physical Therapy Treatment Education Education Provided Safety M7 PT-IP Assessment and Plan Start: 05/12/21 13:52 Freq: NEEDED Status: Active Protocol: Document 05/15/21 15:25 AB (Rec: 05/15/21 16:27 AB [id number]) PT Summary Assessment and Plan Potential Rehabilitation Potential Good Summary Impairments Pain,ROM,Strength,Balance, Coordination,Sensation,Tone, Cognition,Bed Mobility, Transfers,Gait,Activity Tolerance Progress Towards Goals Slow Progress due to Pain,Slow Progress due to Medical Issues Assessment Summary pt improving well with mobility and ambulated using FWW SBA. stated that he will be able to get a FWW for home use. ambulated without AD SBA to CGA ~ 25 ft. pt son will be able to assist pt at home. Goals Bed Mobility Goal Independent Transfer Goal Independent Gait Goal Independent Gait Distance 250 Other Goals ambulation without AD 250 ft independent Days to Meet Goals 10 Frequency of Treatment Frequency Of Treatment Once a Day Treatment Plan Physical Therapy Treatment Plan Bed Mobility Training,Transfer Training,Gait Training, Therapeutic Exercise,Balance Retraining,Post Op Education, Discharge Planning,Hot or Cold Pack,Neuromuscular Re-ed, Coordination Retraining,Manual Therapy Precautions Abdominal Surgery Precautions Log Roll,Lifting Restrictions, Gait Belt above Incisional Area Recommendations To Nursing Amount of Assist Needed Standby Assistance Discharge Recommendations PT Discharge Recommendations Home with Assistance Transportation Needs at Discharge Private Vehicle
--- NOTE | 2021-05-15 23:25 | PC.NURSE ---
pt had another small formed bowel movement this evening. NG tube had 250cc out. late in the evening, his NG started putting out red tinge drainage, it was originally dark green. minimal abdominal pain 10/29. pt ambulated with PT today and he was up in his chair for 3 hours.
[2021-05-16] VITALS (8 sets, daily range): BP systolic 155–171; BP diastolic 70–83; PULSE 67–84; RESP 16–18; TEMP 35.9–37.6; O2SAT 90–96
--- NOTE | 2021-05-16 | DI.RAD.S_ITS ---
PROCEDURE: XR GASTROGRAFIN CHALLENGE COMPARISON: [facility], CR, XR ACUTE ABDOMEN SERIES, 05/16/2021, 7:25. INDICATIONS: ileus vs obstruction FINDINGS: 4 hours after ingestion of water-soluble oral contrast the small bowel and gastric dilatation pattern previously present is again noted. Oral contrast has transited through approximately 1/3 of the small bowel, and is sequestered predominantly in the upper half of the abdomen/pelvis. Some degree of oral contrast is transiting into the lower abdomen, however. IMPRESSION: 4 hours after initiation of the Gastrografin challenge oral contrast has not reached the right lower quadrant. Dictated by: Peyman Sapp M.D. on 05/16/2021 at 16:57 Approved by: Peyman Sapp M.D. on 05/16/2021 at 16:59
--- NOTE | 2021-05-16 02:30 | PC.NURSE ---
Patient is alert and oriented. Breath sounds CTA with RA sat of 92%. HRR. BP continues to be elevated at 165/51 but has not been able to take his Lisinopril as has been NPO. Denies nausea. BT remain absent on right and hypoactive on left. Abdomen is soft and tender but appears less distended. Patient did have BM yesterday after receiving suppository but states he still is not passing much flatus. Bandaid dressings to abdomen are CDI. Dressing to RLQ of abdomen intact with small amount sanguinous drainage at lateral edge. Indwelling catheter is patent; urine is clear, yellow. Is able to move himself in bed. Has NG to intermittent suction; output is blood tinged. Gait not assessed but patient reports he is up during the day with walker and 1 assist due to weakness. Wearing bilateral CLAIRE stockings and calf SCD's. Denies pain. Remains NPO except for ice chips. Fall risk score is moderate and bed alarm is activated.
[2021-05-16] MEDS: KETOROLAC 30 MG/ML VIAL 15 MG IV ×4 (03:33→22:19)
[2021-05-16] MEDS: metroNIDAZOLE 500 MG/100 ML PIGGYBACK 100 MG IV ×3 (05:52→17:24)
[2021-05-16 06:31] LABS: Add Manual Diff / Slide Review NO; Basophils Absolute Auto 100 /uL (0-100); Basophils Percent Auto 0.6 % (0-2); Eosinophils Absolute Auto 400 /uL (0-450); Eosinophils Percent Auto 4.4 % (2-4); Hematocrit 36.2 % (41-53); Hemoglobin 12.1 g/dL (13.5-17.5); Lymphocytes Absolute Auto 1400 /uL (1100-4500); Lymphocytes Percent Auto 16.1 % (25-40); Mean Corpuscular HGB Conc 33.4 % (30-36); Mean Corpuscular Hemoglobin 29.5 PG (26-34); Mean Corpuscular Volume 88.4 fL (80-100); Monocytes Absolute Auto 800 /uL (0-900); Monocytes Percent Auto 9.3 % (3-14); Neutrophils Absolute Auto 6000 /uL (1500-7000); Neutrophils Percent Auto 69.6 % (50-75); Platelet Count 364 X10^3/uL (150-400); Red Cell Distribution Width 13.6 % (11.6-14.8); White Blood Cell Count 8.7 X10^3/uL (4.5-11.0)
[2021-05-16 06:42] LABS: Magnesium 2.1 mg/dL (1.6-2.3)
--- NOTE | 2021-05-16 06:43 | DI.RAD.S_ITS ---
PROCEDURE: XR ACUTE ABDOMEN SERIES INDICATIONS: f/u ileus TECHNIQUE: One view chest and two views of the abdomen were acquired. COMPARISON: [facility], CR, XR ABDOMEN MIN 2V, 05/15/2021, 11:08. FINDINGS: Surgical changes and devices: Nasogastric tube is present. The side hole is at the level of the GE junction. Chest: Bibasilar atelectatic changes are present. Trace small bilateral effusions. The upper lobes are hyperlucent. No central venous congestion. Cardiomediastinal contour is normal. Abdomen: Several dilated air-filled bowel loops are present demonstrating air-fluid levels there is a relative paucity of colonic gas. No visible solid stool present. Bones: No suspicious bony lesions. IMPRESSION: 1. Similar bowel gas pattern compared to the prior study suggesting severe ileus or partial obstruction. 2. Bibasilar atelectasis and development of trace bilateral pleural effusions. 3. NG tube side hole at the GE junction, similar compared to the prior study. This should be advanced about 10 cm for more optimal placement. Dictated by: Tiera Chin M.D. on 05/16/2021 at 8:19 Approved by: Tiera Chin M.D. on 05/16/2021 at 8:28
[2021-05-16 06:45] LABS: BUN Creatinine Ratio 19.4 (6-22); Blood Urea Nitrogen 14 mg/dL (9-20); Calcium 8.2 mg/dL (8.4-10.2); Carbon Dioxide 25 mmol/L (22-32); Chloride 106 mmol/L (98-107); Estimated Glomerular Filt Rate > 60.0 mL/min (>60); Glucose 103 mg/dL (80-110); HEMOLYSIS < 15 (0-50); Potassium 3.5 mmol/L (3.4-5.1); Sodium 134 mmol/L (137-145)
[2021-05-16 06:59] LABS: Procalcitonin 0.16 ng/mL (<0.5)
--- NOTE | 2021-05-16 09:40 | PT.IPTN ---
Current Diagnoses Acute appendicitis with localized peritonitis, without perforation or gangrene (05/10/21) Acute appendicitis with perforation and localized peritonitis, with abscess (05/10/21) Surgery Performed Operation Date: 05/10/21 18:15 Actual Procedures p Laparoscopic Appendectomy Convert to Open - Oleksandr John MD Physical Therapy Treatment Note M2 PT-IP Current Condition Start: 05/12/21 13:52 Freq: NEEDED Status: Active Protocol: Document 05/12/21 11:00 AB (Rec: 05/12/21 14:03 AB [id number]) Physical Therapy Current Condition Current Condition Evaluation Date 05/12/21 Treatment Diagnosis s/p appendectomy; difficulty in walking Onset Date 05/10/21 Precautions Abdominal Surgery Precautions Log Roll,Lifting Restrictions, Gait Belt above Incisional Area M3 PT-IP Subjective Start: 05/12/21 13:52 Freq: NEEDED Status: Active Protocol: Document 05/16/21 09:00 SP (Rec: 05/16/21 13:28 SP [id number]) Subjective Physical Therapy Visit Type Type Treatment Note Visit Start Time 09:00 Visit Stop Time 09:40 Total Visit Minutes 40 Number of DOMESTIC TRAVEL CONSULTANT Visits 1 Physical Therapy Visit Comments Patient Comments Pt agreed to work with therapy . Therapy Pain Assessment Pain Present Pain Present Denied Pain M4 PT-IP Mobility and Gait Start: 05/12/21 13:52 Freq: NEEDED Status: Active Protocol: Document 05/16/21 09:00 SP (Rec: 05/16/21 13:28 SP [id number]) PT-Bed Mobility Assessment Rolling Type of Rolling Log Rolling Level of Assist Standby Assistance Supine to Sit Supine to Sit Standby Assistance Scooting Scooting to Edge of Bed Standby Assistance PT-Transfer Assessment Sit to and From Stand Sit to and from Stand Standby Assistance Equipment Transfer Assistive Device Gait Belt,Front Wheeled Walker Orthotic/Prosthetic Devices or Brace: No Transfers Transfer Destination Chair Transfer Technique ambulated using FWW Transfer Ability Level of Assist Standby Assistance,Use of Upper Extremities Comments Mobility Comments LR L with use of bed rail HOB at 30 deg due to precautions NG Tube. L SL>sit and scoot to EOB sBA. Sit>stand SBA usign FWW. Pt ambulated using fWW sBA 3 laps around nursing station approx 600 ft +, 40 ft no AD with noted trunk sway no LOB but unsteady so provided fWW back and educated continued use of FWW for safety with pt in agreement. Educated pt nursing staff is able to perform ambulation with him as well if requested. Pt returned to room sBA stand >sit into chair. Pt report need to use the bathroom. Sit> stand, ambulate into bathroom and good standing stabilty pivot in BR usign FWW sBA, back up and slow descent to toilet w/ use of grab bar on L . DOMESTIC TRAVEL CONSULTANT called nurse to take over due to stating might be little while. Pt had call light in reach, handed pt off to nurse to provide S. Gait Assessment Gait Gait Assistance Required: Standby Assistance,Contact Guard Assist,1 Person Assist Distance (Feet) 600 Able to Maintain Weight Bearing Status Yes During Gait Assistive Devices Assistive Device None,Gait Belt,Front Wheeled Walker Orthotic/Prosthetic Devices or Brace: No Gait Deviations General Gait Pattern Antalgic,Lateral Trunk Lean Factors Limiting Gait Function Factors Limiting Gait Function Poor Balance Comments Gait Comments see mobility comments Stair Climbing Assessment Comments Stair Climbing Comments no stairs at home to assess, has ramp to enter home. PT-Balance Assessment Sitting Balance and Reactions Static Sitting Balance Ability Normal Dynamic Sitting Balance Ability Good Standing Balance and Reactions Static Standing Balance Ability Good Dynamic Standing Balance Ability Fair Device Used FWW, no AD CGA M5 PT-IP Objective Assessments Start: 05/12/21 13:52 Freq: NEEDED Status: Active Protocol: Document 05/12/21 11:00 AB (Rec: 05/12/21 14:03 AB [id number]) Orientation Orientation/Cognition Level of Alertness Alert Orientation Name,Place,Situation Language Function Ability No Deficits Noted Safety Awareness Understands Safety Issues Memory Description No Deficits Noted Gross Range of Motion Lower Extremity ROM Assessment Within Functional Limits Strength Comments Strength Comments RLE : 4-/5 LLE: 4/5 Coordination Assessment Gross Coordination Gross Coordination WNL Sensation Assessment Sensation Gross Sensation WNL Muscle Tone Muscle Tone WNL Yes M6 PT-IP Treatment Start: 05/12/21 13:52 Freq: NEEDED Status: Active Protocol: Document 05/16/21 09:00 SP (Rec: 05/16/21 13:28 SP [id number]) Physical Therapy Treatment Education Education Provided Safety M7 PT-IP Assessment and Plan Start: 05/12/21 13:52 Freq: NEEDED Status: Active Protocol: Document 05/16/21 09:00 SP (Rec: 05/16/21 13:28 SP [id number]) PT Summary Assessment and Plan Potential Rehabilitation Potential Good Status of Condition at Evaluation Evolving Summary Impairments Pain,ROM,Strength,Balance, Coordination,Sensation,Tone, Cognition,Bed Mobility, Transfers,Gait,Activity Tolerance Progress Towards Goals Progressing Toward Goals,Slow Progress due to Medical Issues Assessment Summary Pt improving well with mobility and ambulated using FWW SBA. stated that he will be able to get a FWW for home use. Ambulated without AD SBA to CGA ~ 40 ft. Pt son will be able to assist pt at home. Will continue to assess progress. Goals Bed Mobility Goal Independent Transfer Goal Independent Gait Goal Independent Gait Distance 250 Other Goals ambulation without AD 250 ft independent Days to Meet Goals 10 Frequency of Treatment Frequency Of Treatment Once a Day Treatment Plan Physical Therapy Treatment Plan Bed Mobility Training,Transfer Training,Gait Training, Therapeutic Exercise,Balance Retraining,Post Op Education, Discharge Planning,Hot or Cold Pack,Neuromuscular Re-ed, Coordination Retraining,Manual Therapy Other Recommendations and Next Treatment gait with and without FWW, Focus standing balance stationary and dynamic. Precautions Abdominal Surgery Precautions Log Roll,Lifting Restrictions, Gait Belt above Incisional Area Recommendations To Nursing Amount of Assist Needed Standby Assistance Discharge Recommendations PT Discharge Recommendations Home with Assistance Transportation Needs at Discharge Private Vehicle
[2021-05-16] MEDS: levoFLOXacin 750 MG/150 ML PIGGYBACK 100 MG IV (09:44)
[2021-05-16] MEDS: ENOXAPARIN 40 MG/0.4 ML SYRINGE SUBCUT (09:44)
[2021-05-16] MEDS: PANTOPRAZOLE 40 MG VIAL IV (09:44)
[2021-05-16] MEDS: DEXTROSE 5%-LACTATED RINGERS 1,000 ML 50 ML IV (09:49)
--- NOTE | 2021-05-16 10:52 | DIET.PN ---
Dietary Progress Note RD Note: Pt at LOS day 6 with prolonged NPO status secondary to appendectomy and severe ileus. While pt did have a small, formed BM last night per nursing after receiving suppository, imaging report this am shows little to no change. Recc pt be considered for TPN if remaining NPO >24h. Please consult RD for reccs.
--- NOTE | 2021-05-16 11:31 | PC.NURSE ---
Per radiology instructed to advance NG tube 10cm (done), patient tolerated well. Radiology up to start gastrografin challenge as ordered. Continue to monitor.
--- NOTE | 2021-05-16 18:40 | P.PN_ITS ---
Subjective Subjective Interval history: feeling better. Had another (loose) stool. Pain well controlled. Exam Vital Signs (past 8 hours): - 05/16/21 12:32 05/16/21 16:00 05/16/21 16:06 Temperature 96.7 F L 97.0 F L Pulse Rate 78 74 Respiratory Rate 18 18 Blood Pressure 155/78 H 155/71 H Pulse Oximetry 96 92 92 Oxygen Delivery Method Room Air Oxygen Flow Rate 0 Narrative Exam Narrative: NAD. Lungs clear. Abdomen still distended but soft. Objective Labs Result Diagrams: 05/16/21 06:03 05/16/21 06:03 Labs: Laboratory Results - last 24 hr 05/16/21 05/16/21 05/16/21 06:03 06:03 06:03 WBC 8.7 RBC 4.10 L Hgb 12.1 L Hct 36.2 L MCV 88.4 MCH 29.5 MCHC 33.4 RDW 13.6 Plt Count 364 Neut % (Auto) 69.6 Lymph % (Auto) 16.1 L [place] % (Auto) 9.3 Eos % (Auto) 4.4 H Baso % (Auto) 0.6 Neut # (Auto) 6000 Lymph # (Auto) 1400 [place] # (Auto) 800 Eos # (Auto) 400 Baso # (Auto) 100 Sodium 134 L Potassium 3.5 Chloride 106 Carbon Dioxide 25 BUN 14 Creatinine 0.72 Estimated GFR > 60.0 BUN/Creatinine Ratio 19.4 Glucose 103 Calcium 8.2 L Magnesium 2.1 Procalcitonin 0.16 [facility] Medical History Elevated cholesterol Hypertension Surgical History S/P operative procedure on shoulder S/P operative procedure on wrist Social History household members: spouse and family Smoking Status: Never smoker alcohol intake: never Assessment & Plan Post-op Postoperative Procedures: Procedures Operation Date: 05/10/21 18:15 Actual Procedure Side Surgeon p Laparoscopic Appendectomy Convert to Open Oleksandr John MD Postoperative status narrative: Slowly improving. Gastrographin challenge in progress. I suspect it will go through since he has begun to have flatus and BM. Postoperative plan narrative: continue NG until distention improved. Continue IV antibiotic and dvt prophylaxis. Quality VTE Deep Vein Thrombosis/Pulmonary Embolism Present on Admission: No
--- NOTE | 2021-05-16 19:00 | DI.RAD.S_ITS ---
PROCEDURE: XR ABDOMEN 1V COMPARISON: [facility], CR, XR ABDOMEN 1V, 05/14/2021, 8:02. [facility], CR, XR ABDOMEN MIN 2V, 05/15/2021, 11:08. INDICATIONS: Follow-up film FINDINGS: AP views of the abdomen were performed at 7 hours and 15 minutes. The stomach, duodenum, and small bowel are distended and filled with contrast. The contrast becomes more diluted distally. Some air-filled loops of small bowel are seen in the right lower quadrant which do not contain contrast. There is no contrast in the large bowel. IMPRESSION: Distended small bowel with no contrast in the large bowel. Findings are consistent with small bowel obstruction. Dictated by: Antelmo Velez M.D. on 05/16/2021 at 19:27 Approved by: Antelmo Velez M.D. on 05/16/2021 at 19:29
--- NOTE | 2021-05-16 21:45 | PC.NURSE ---
pt had 300cc emesis 30minutes after abd xray. turned the suction back on. pt had 1 loose stool this evening shift.
[2021-05-17] VITALS (10 sets, daily range): BP systolic 136–149; BP diastolic 55–70; PULSE 69–81; RESP 16–18; TEMP 36.2–36.8; O2SAT 91–95
[2021-05-17] MEDS: metroNIDAZOLE 500 MG/100 ML PIGGYBACK 100 MG IV ×5 (00:42→23:55)
[2021-05-17] MEDS: KETOROLAC 30 MG/ML VIAL 15 MG IV (04:38)
[2021-05-17 06:34] LABS: Add Manual Diff / Slide Review NO; Basophils Absolute Auto 100 /uL (0-100); Basophils Percent Auto 0.7 % (0-2); Eosinophils Absolute Auto 300 /uL (0-450); Eosinophils Percent Auto 3.1 % (2-4); Hematocrit 37.5 % (41-53); Hemoglobin 12.4 g/dL (13.5-17.5); Lymphocytes Absolute Auto 1600 /uL (1100-4500); Mean Corpuscular HGB Conc 33.1 % (30-36); Mean Corpuscular Hemoglobin 29.5 PG (26-34); Mean Corpuscular Volume 89.1 fL (80-100); Monocytes Absolute Auto 900 /uL (0-900); Monocytes Percent Auto 8.8 % (3-14); Neutrophils Absolute Auto 7100 /uL (1500-7000); Neutrophils Percent Auto 71.4 % (50-75); Platelet Count 404 X10^3/uL (150-400); Red Blood Cell Count 4.21 X10^6/uL (4.5-5.9); Red Cell Distribution Width 13.8 % (11.6-14.8); White Blood Cell Count 9.9 X10^3/uL (4.5-11.0)
[2021-05-17 06:44] LABS: BUN Creatinine Ratio 23.5 (6-22); Blood Urea Nitrogen 19 mg/dL (9-20); Calcium 8.4 mg/dL (8.4-10.2); Carbon Dioxide 27 mmol/L (22-32); Chloride 109 mmol/L (98-107); Estimated Glomerular Filt Rate > 60.0 mL/min (>60); Glucose 111 mg/dL (80-110); HEMOLYSIS < 15 (0-50); Potassium 3.5 mmol/L (3.4-5.1); Sodium 139 mmol/L (137-145)
--- NOTE | 2021-05-17 08:03 | DI.RAD.S_ITS ---
PROCEDURE: XR ACUTE ABDOMEN SERIES INDICATIONS: f/u gastroview challenge TECHNIQUE: One view chest and two views of the abdomen were acquired. COMPARISON: , CR, XR ACUTE ABDOMEN SERIES, 05/16/2021, 7:25. FINDINGS: Surgical changes and devices: Enteric tube with the tip projecting in the stomach. Chest: Scattered subsegmental atelectasis and/or scarring. No focal consolidation. Trace bilateral pleural effusion. Abdomen: Oral contrast material has reached the rectal vault. Contrast material primarily seen within the colon. There are scattered air-fluid levels and dilated bowel loops as before. No definite interval change since yesterday. Bones: No suspicious bony lesions. IMPRESSION: Oral contrast material reaches the rectal vault. Scattered air-fluid levels and dilated bowel loops appear grossly unchanged since yesterday. Dictated by: Arley Morgan M.D. on 05/17/2021 at 8:59 Approved by: Arley Morgan M.D. on 05/17/2021 at 9:02
[2021-05-17] MEDS: levoFLOXacin 750 MG/150 ML PIGGYBACK 100 MG IV (09:25)
[2021-05-17] MEDS: ENOXAPARIN 40 MG/0.4 ML SYRINGE SUBCUT (09:26)
[2021-05-17] MEDS: PANTOPRAZOLE 40 MG VIAL IV (09:26)
[2021-05-17] MEDS: DEXTROSE 5%-LACTATED RINGERS 1,000 ML 50 ML IV ×2 (09:27→20:02)
--- NOTE | 2021-05-17 10:59 | PT.IPTN ---
Current Diagnoses Acute appendicitis with localized peritonitis, without perforation or gangrene (05/10/21) Acute appendicitis with perforation and localized peritonitis, with abscess (05/10/21) Surgery Performed Operation Date: 05/10/21 18:15 Actual Procedures p Laparoscopic Appendectomy Convert to Open - Oleksandr John MD Physical Therapy Treatment Note M2 PT-IP Current Condition Start: 05/12/21 13:52 Freq: NEEDED Status: Active Protocol: Document 05/12/21 11:00 AB (Rec: 05/12/21 14:03 AB [id number]) Physical Therapy Current Condition Current Condition Evaluation Date 05/12/21 Treatment Diagnosis s/p appendectomy; difficulty in walking Onset Date 05/10/21 Precautions Abdominal Surgery Precautions Log Roll,Lifting Restrictions, Gait Belt above Incisional Area M3 PT-IP Subjective Start: 05/12/21 13:52 Freq: NEEDED Status: Active Protocol: Document 05/17/21 10:38 CLB (Rec: 05/17/21 11:39 CLB [id number]) Subjective Physical Therapy Visit Type Type Treatment Note Visit Start Time 10:38 Visit Stop Time 10:59 Total Visit Minutes 21 Number of GEOTECHNICAL OPERATING ENGINEER Visits 2 Physical Therapy Visit Comments Patient Comments Pt agreed to work with therapy . Therapy Pain Assessment Pain Present Pain Present Denied Pain M4 PT-IP Mobility and Gait Start: 05/12/21 13:52 Freq: NEEDED Status: Active Protocol: Document 05/17/21 10:38 CLB (Rec: 05/17/21 11:39 CLB [id number]) PT-Transfer Assessment Sit to and From Stand Sit to and from Stand Standby Assistance Equipment Transfer Assistive Device Gait Belt,Front Wheeled Walker Orthotic/Prosthetic Devices or Brace: No Transfers Transfer Destination Chair Transfer Technique ambulated using FWW Transfer Ability Level of Assist Standby Assistance,Use of Upper Extremities Comments Mobility Comments Pt stood SBA and ambulated in michelle ~600ft w/FWW/SBA and assist with IV pole around [facility]. Gait Assessment Gait Gait Assistance Required: Standby Assistance,1 Person Assist Distance (Feet) 600 Able to Maintain Weight Bearing Status Yes During Gait Assistive Devices Assistive Device Gait Belt,Front Wheeled Walker Orthotic/Prosthetic Devices or Brace: No Comments Gait Comments Pt ambulated SBA with FWW with steady gait and upright posture. Stair Climbing Assessment Comments Stair Climbing Comments no stairs at home to assess, has ramp to enter home. PT-Balance Assessment Sitting Balance and Reactions Static Sitting Balance Ability Normal Dynamic Sitting Balance Ability Good Standing Balance and Reactions Static Standing Balance Ability Good Dynamic Standing Balance Ability Fair M5 PT-IP Objective Assessments Start: 05/12/21 13:52 Freq: NEEDED Status: Active Protocol: Document 05/12/21 11:00 AB (Rec: 05/12/21 14:03 AB [id number]) Orientation Orientation/Cognition Level of Alertness Alert Orientation Name,Place,Situation Language Function Ability No Deficits Noted Safety Awareness Understands Safety Issues Memory Description No Deficits Noted Gross Range of Motion Lower Extremity ROM Assessment Within Functional Limits Strength Comments Strength Comments RLE : 4-/5 LLE: 4/5 Coordination Assessment Gross Coordination Gross Coordination WNL Sensation Assessment Sensation Gross Sensation WNL Muscle Tone Muscle Tone WNL Yes M6 PT-IP Treatment Start: 05/12/21 13:52 Freq: NEEDED Status: Active Protocol: Document 05/16/21 09:00 SP (Rec: 05/16/21 13:28 SP [id number]) Physical Therapy Treatment Education Education Provided Safety M7 PT-IP Assessment and Plan Start: 05/12/21 13:52 Freq: NEEDED Status: Active Protocol: Document 05/17/21 10:38 CLB (Rec: 05/17/21 11:39 CLB [id number]) PT Summary Assessment and Plan Potential Rehabilitation Potential Good Status of Condition at Evaluation Evolving Summary Impairments Pain,ROM,Strength,Balance, Coordination,Sensation,Tone, Cognition,Bed Mobility, Transfers,Gait,Activity Tolerance Progress Towards Goals Progressing Toward Goals,Slow Progress due to Medical Issues Assessment Summary Pt ambulating SBA with steady gait with no c/o increased pain during ambulation. Goals Bed Mobility Goal Independent Transfer Goal Independent Gait Goal Independent Gait Distance 250 Other Goals ambulation without AD 250 ft independent Days to Meet Goals 10 Frequency of Treatment Frequency Of Treatment Once a Day Treatment Plan Physical Therapy Treatment Plan Bed Mobility Training,Transfer Training,Gait Training, Therapeutic Exercise,Balance Retraining,Post Op Education, Discharge Planning,Hot or Cold Pack,Neuromuscular Re-ed, Coordination Retraining,Manual Therapy Other Recommendations and Next Treatment gait with and without FWW, Focus standing balance stationary and dynamic. Precautions Abdominal Surgery Precautions Log Roll,Lifting Restrictions, Gait Belt above Incisional Area Recommendations To Nursing Amount of Assist Needed Standby Assistance Discharge Recommendations PT Discharge Recommendations Home with Assistance Transportation Needs at Discharge Private Vehicle
--- NOTE | 2021-05-17 12:19 | P.PN_ITS ---
Subjective Subjective Interval history: Patient feeling a little better. Passing flatus. Had BM. Like to get the NG tube out. Exam Vital Signs (past 8 hours): - 05/17/21 05:00 05/17/21 08:59 Temperature 97.9 F 97.1 F L Pulse Rate 69 71 Respiratory Rate 18 18 Blood Pressure 140/55 L 137/62 Pulse Oximetry 92 91 Oxygen Delivery Method Room Air Oxygen Flow Rate 0 Narrative Exam Narrative: Lungs are clear. Abdomen little less distended. No significant tenderness. Objective Labs Result Diagrams: 05/17/21 06:17 05/17/21 06:17 Labs: Laboratory Results - last 24 hr 05/17/21 05/17/21 06:17 06:17 WBC 9.9 RBC 4.21 L Hgb 12.4 L Hct 37.5 L MCV 89.1 MCH 29.5 MCHC 33.1 RDW 13.8 Plt Count 404 H Neut % (Auto) 71.4 Lymph % (Auto) 16.0 L [place] % (Auto) 8.8 Eos % (Auto) 3.1 Baso % (Auto) 0.7 Neut # (Auto) 7100 H Lymph # (Auto) 1600 [place] # (Auto) 900 Eos # (Auto) 300 Baso # (Auto) 100 Sodium 139 Potassium 3.5 Chloride 109 H Carbon Dioxide 27 BUN 19 Creatinine 0.81 Estimated GFR > 60.0 BUN/Creatinine Ratio 23.5 H Glucose 111 H Calcium 8.4 PFSH Medical History Elevated cholesterol Hypertension Surgical History S/P operative procedure on shoulder S/P operative procedure on wrist Social History household members: spouse and family Smoking Status: Never smoker alcohol intake: never Assessment & Plan Post-op Postoperative Procedures: Procedures Operation Date: 05/10/21 18:15 Actual Procedure Side Surgeon p Laparoscopic Appendectomy Convert to Open Oleksandr John MD Postoperative plan narrative: Reviewed patient's x-rays. Contrast is passed entirely into the colon and rectum. The small bowel remains distended but improved from yesterday. Will DC his NG tube. Keep him NPO except for meds. Add oral meds back. Start Flomax so that we can hopefully get his [place] out soon. Quality VTE Deep Vein Thrombosis/Pulmonary Embolism Present on Admission: No
--- NOTE | 2021-05-17 12:21 | PC.NURSE ---
NG tube dc'd per order, patient tolerated well.
[2021-05-17] MEDS: TAMSULOSIN 0.4 MG CAPSULE PO (13:31)
[2021-05-17] MEDS: METOCLOPRAMIDE HCL 10 MG TABLET 5 MG PO (20:10)
[2021-05-17] MEDS: ATORVASTATIN 20 MG TABLET 10 MG PO (20:10)
[2021-05-17] MEDS: GABAPENTIN 300 MG CAPSULE PO (20:10)
[2021-05-18] VITALS (15 sets, daily range): BP systolic 114–174; BP diastolic 57–78; PULSE 65–84; RESP 13–18; TEMP 36.2–37.1; O2SAT 91–98
--- NOTE | 2021-05-18 00:37 | PC.NURSE ---
2400: spo2 RA 91%, o2 1lpm via NC applied: 93%. no ASE r/t flomax started 05/17, continues w/ NPO, no ice. XR ABD in AM.
[2021-05-18] MEDS: metroNIDAZOLE 500 MG/100 ML PIGGYBACK 100 MG IV ×2 (05:54→11:18)
[2021-05-18] MEDS: PANTOPRAZOLE DR 40 MG TABLET PO (06:31)
--- NOTE | 2021-05-18 07:16 | DI.RAD.S_ITS ---
PROCEDURE: XR ABDOMEN MIN 2V INDICATIONS: f/u on ileus determine gas distribution TECHNIQUE: 2 views of the abdomen were acquired. COMPARISON: [facility], CR, XR ACUTE ABDOMEN SERIES, 05/17/2021, 8:16. [facility], CR, XR ABDOMEN 1V, 05/16/2021, 18:45. FINDINGS: Surgical changes and devices: None. Enteric tube is been removed. Bowel: No pneumoperitoneum. A small amount of residual oral contrast material is seen within the right colon. Scattered air-fluid levels are redemonstrated with dilated bowel loops that do not appear significantly changed when compared to the exam from the day prior. Soft tissues: Visualized solid organ contours appear normal in size. No suspicious abdominal calcifications. Bones: No suspicious bony abnormalities. Multilevel degenerative changes in the spine. IMPRESSION: Clearing of oral contrast material from the left colon and rectum with a small amount of residual contrast material within the right colon. Scattered air-fluid levels and dilated small bowel loops do not appear significantly changed when compared to the exam from the day prior. Dictated by: Gato Roldan M.D. on 05/18/2021 at 8:45 Approved by: Gato Roldan M.D. on 05/18/2021 at 8:47
[2021-05-18] MEDS: METOCLOPRAMIDE HCL 10 MG TABLET 5 MG PO ×3 (08:52→20:40)
[2021-05-18] MEDS: TAMSULOSIN 0.4 MG CAPSULE PO (08:52)
[2021-05-18] MEDS: levoFLOXacin 750 MG/150 ML PIGGYBACK 10 MG IV (08:52)
[2021-05-18] MEDS: ENOXAPARIN 40 MG/0.4 ML SYRINGE SUBCUT (08:52)
[2021-05-18] MEDS: GABAPENTIN 300 MG CAPSULE PO ×2 (08:52→20:41)
[2021-05-18] MEDS: lisinopriL 10 MG TABLET 30 MG PO (09:01)
--- NOTE | 2021-05-18 11:03 | CM.DPC ---
DCP: continued. EMR for last few days reviewed and met now with pt in followup. Pt is found sitting up in bedside chair, NGT taken out yesterday afternoon remains out today. Pt is NPO, says is looking forward to having coffee when this is lifted. He confirms he plan remains home with and son Kevin to provide prn assist when stable for same. Pt has continued to do well with PT. P: Await rounding surgeon update today and DCP team will continue to follow.
--- NOTE | 2021-05-18 11:15 | PT.IPTN ---
Current Diagnoses Acute appendicitis with localized peritonitis, without perforation or gangrene (05/10/21) Acute appendicitis with perforation and localized peritonitis, with abscess (05/10/21) Surgery Performed Operation Date: 05/10/21 18:15 Actual Procedures p Laparoscopic Appendectomy Convert to Open - Oleksandr John MD Physical Therapy Treatment Note M2 PT-IP Current Condition Start: 05/12/21 13:52 Freq: NEEDED Status: Active Protocol: Document 05/12/21 11:00 AB (Rec: 05/12/21 14:03 AB [id number]) Physical Therapy Current Condition Current Condition Evaluation Date 05/12/21 Treatment Diagnosis s/p appendectomy; difficulty in walking Onset Date 05/10/21 Precautions Abdominal Surgery Precautions Log Roll,Lifting Restrictions, Gait Belt above Incisional Area M3 PT-IP Subjective Start: 05/12/21 13:52 Freq: NEEDED Status: Active Protocol: Document 05/18/21 10:58 CLB (Rec: 05/18/21 12:29 CLB [id number]) Subjective Physical Therapy Visit Type Type Treatment Note Visit Start Time 10:58 Visit Stop Time 11:15 Total Visit Minutes 17 Number of LEAD BI DEVELOPER Visits 3 Physical Therapy Visit Comments Patient Comments Pt agreed to work with therapy . Therapy Pain Assessment Pain Present Pain Present Denied Pain M4 PT-IP Mobility and Gait Start: 05/12/21 13:52 Freq: NEEDED Status: Active Protocol: Document 05/18/21 10:58 CLB (Rec: 05/18/21 12:29 CLB [id number]) PT-Transfer Assessment Sit to and From Stand Sit to and from Stand Standby Assistance Equipment Transfer Assistive Device None,Gait Belt Orthotic/Prosthetic Devices or Brace: No Transfers Transfer Destination Chair Transfer Technique Stand Step Pivot Transfer Ability Level of Assist Standby Assistance,Use of Upper Extremities Comments Mobility Comments Pt stood from chair SBA and ambulated in michelle w/o AD CGA with LOB but pt able to correct. Pt returned to room sitting in chair SBA. Left pt in chair with all needs within reach. Gait Assessment Gait Gait Assistance Required: Contact Guard Assist,1 Person Assist Distance (Feet) 600 Able to Maintain Weight Bearing Status Yes During Gait Assistive Devices Assistive Device None,Gait Belt Orthotic/Prosthetic Devices or Brace: No Gait Deviations General Gait Pattern Lateral Trunk Lean Factors Limiting Gait Function Factors Limiting Gait Function Poor Balance Comments Gait Comments Pt ambulated ~600ft requiring CGA with LOB to right with pt able to self correct. Stair Climbing Assessment Comments Stair Climbing Comments no stairs at home to assess, has ramp to enter home. PT-Balance Assessment Sitting Balance and Reactions Static Sitting Balance Ability Normal Dynamic Sitting Balance Ability Good Standing Balance and Reactions Static Standing Balance Ability Good Dynamic Standing Balance Ability Fair M5 PT-IP Objective Assessments Start: 05/12/21 13:52 Freq: NEEDED Status: Active Protocol: Document 05/12/21 11:00 AB (Rec: 05/12/21 14:03 AB [id number]) Orientation Orientation/Cognition Level of Alertness Alert Orientation Name,Place,Situation Language Function Ability No Deficits Noted Safety Awareness Understands Safety Issues Memory Description No Deficits Noted Gross Range of Motion Lower Extremity ROM Assessment Within Functional Limits Strength Comments Strength Comments RLE : 4-/5 LLE: 4/5 Coordination Assessment Gross Coordination Gross Coordination WNL Sensation Assessment Sensation Gross Sensation WNL Muscle Tone Muscle Tone WNL Yes M6 PT-IP Treatment Start: 05/12/21 13:52 Freq: NEEDED Status: Active Protocol: Document 05/16/21 09:00 SP (Rec: 05/16/21 13:28 SP [id number]) Physical Therapy Treatment Education Education Provided Safety M7 PT-IP Assessment and Plan Start: 05/12/21 13:52 Freq: NEEDED Status: Active Protocol: Document 05/18/21 10:58 CLB (Rec: 05/18/21 12:29 CLB [id number]) PT Summary Assessment and Plan Potential Rehabilitation Potential Good Status of Condition at Evaluation Evolving Summary Impairments Pain,ROM,Strength,Balance, Coordination,Sensation,Tone, Cognition,Bed Mobility, Transfers,Gait,Activity Tolerance Progress Towards Goals Progressing Toward Goals Assessment Summary Pt able to ambulate CGA w/o AD will continue to progress pt' s gait ability w/o AD as able. Goals Bed Mobility Goal Independent Transfer Goal Independent Gait Goal Independent Gait Distance 250 Other Goals ambulation without AD 250 ft independent Days to Meet Goals 10 Frequency of Treatment Frequency Of Treatment Once a Day Treatment Plan Physical Therapy Treatment Plan Bed Mobility Training,Transfer Training,Gait Training, Therapeutic Exercise,Balance Retraining,Post Op Education, Discharge Planning,Hot or Cold Pack,Neuromuscular Re-ed, Coordination Retraining,Manual Therapy Other Recommendations and Next Treatment gait w/o AD, bed mobility Focus Precautions Abdominal Surgery Precautions Log Roll,Lifting Restrictions, Gait Belt above Incisional Area Recommendations To Nursing Amount of Assist Needed Standby Assistance Discharge Recommendations PT Discharge Recommendations Home with Assistance Transportation Needs at Discharge Private Vehicle
--- NOTE | 2021-05-18 11:47 | PC.NURSE ---
Day shift note: Patient up OOB ambulating in room and hallway. Weaned off O2, O2 sats 94-96%. Performing IS at bedside. X 1BM green watery stool. VSS and afebrile. IVF infusing. F/C to gravity, dark clear, yellow urine. Sitting in chair, continue NPO x meds. Call light within reach.
[2021-05-18] MEDS: BISACODYL 10 MG SUPP PR (15:39)
--- NOTE | 2021-05-18 16:09 | PC.NURSE ---
Patient was sitting up in chair and is calm and conversational. He is A&0 to person, place and situation. He reports no pain. Incisions are clean, dry, intact and with no redness or swelling. Last BM was this am and minimal with liquid. Urine output is dark with some sediment and approximately 75 cc at this time by way of landon. Cath care was perfomed by this student nurse. Lung sounds were clear in upper calix bilateral, but diminished in lower calix. IS performed 5 times with best at 3000. He ambulated to the bed with FWW and no transfer concerns. Bisacodyl administered by this student nurse per EMAR order. He remains in bed with lebron hose and SCD's on both legs. Warm blankets given, call light within reach and bed low and locked.
--- NOTE | 2021-05-18 18:00 | PC.NURSE ---
Addendum entered by Comfort Sol R.N. 05/18/21 23:30: Bolused with LR as per Dr. John's verbal order. In and out of bed several times this shift. Up to chair, bathroom, bed. Small stool this shift. Tolerated clear ensure without any nausea. Addendum entered by Comfort Sol R.N. 05/18/21 19:00: Dr. John was made aware of pt's blood pressure as well as urinary output of 75 cc/s dark urine since this evening shift began. Original Note: Pt up in recliner @ beginning of shift. Student nurse, Brandon, administers ducolax suppository as ordered. Pt denies passage of flatus. Abdomen is distended but pt reports baseline large abdomen. Bowel tones absent to left quadrants and hypoactive to right upper quadrant. Pt denies pain and denies nausea. Abdominal incision RLQ open to air. Lap sites with steristrips intact. Pt is NPO except for meds. BL lebron hose and BL calf scd's in place.
[2021-05-18] MEDS: LACTATED RINGERS 500 ML 1000 ML IV (19:20)
[2021-05-18] MEDS: DEXTROSE 5%-LACTATED RINGERS 1,000 ML 125 ML IV (19:22)
--- NOTE | 2021-05-18 19:32 | P.PN_ITS ---
Subjective Subjective Interval history: Feels well today. Not really having much pain. Quite have the NG tube out. No nausea or vomiting. He has had bowel movements but is not passing flatus. Exam Vital Signs (past 8 hours): - 05/18/21 12:00 05/18/21 13:00 05/18/21 16:00 Temperature 97.2 F L 97.5 F L Pulse Rate 70 65 Respiratory Rate 18 15 Blood Pressure 114/58 L 173/62 H Pulse Oximetry 94 94 98 05/18/21 17:43 05/18/21 18:09 05/18/21 18:12 Temperature Pulse Rate 65 Respiratory Rate Blood Pressure 174/63 H Pulse Oximetry 98 98 Oxygen Delivery Method Room Air Oxygen Flow Rate 0 Narrative Exam Narrative: Physical exam lungs are clear. No rales or rhonchi. Good effort. Heart regular rate and rhythm without murmur gallop. Abdomen is distended but softer. Not really tender to vigorous exam. His incisions all look fine. [place] remains in place. Objective Labs Result Diagrams: 05/17/21 06:17 05/17/21 06:17 [facility] Medical History Elevated cholesterol Hypertension Surgical History S/P operative procedure on shoulder S/P operative procedure on wrist Social History household members: spouse and family Smoking Status: Never smoker alcohol intake: never Assessment & Plan Post-op Postoperative Procedures: Procedures Operation Date: 05/10/21 18:15 Actual Procedure Side Surgeon p Laparoscopic Appendectomy Convert to Open Oleksandr John MD Postoperative status narrative: The much change from yesterday. X-rays reviewed. He clearly has cleared the contrast from his colon with a large bowel movement. Still has some distended small bowel however which is little worrisome. All begin giving him some calories per mouth to see if we can stimulate some bowel function from above and continue to give him suppositories from below. Check x-rays in the morning along with labs. If I do not have some forward progress soon may have to repeat CT scan. Though his procalcitonin is normal as is his white count and differential. Quality VTE Deep Vein Thrombosis/Pulmonary Embolism Present on Admission: No
[2021-05-18] MEDS: ATORVASTATIN 20 MG TABLET 10 MG PO (20:41)
[2021-05-19] VITALS (13 sets, daily range): BP systolic 117–174; BP diastolic 52–78; PULSE 66–72; RESP 15–19; TEMP 36.1–36.8; O2SAT 90–99
[2021-05-19] MEDS: DEXTROSE 5%-LACTATED RINGERS 1,000 ML 125 ML IV ×2 (04:36→11:47)
[2021-05-19 06:00] LABS: Add Manual Diff / Slide Review NO; Basophils Absolute Auto 100 /uL (0-100); Basophils Percent Auto 1.2 % (0-2); Eosinophils Absolute Auto 300 /uL (0-450); Eosinophils Percent Auto 3.9 % (2-4); Hematocrit 33.9 % (41-53); Hemoglobin 11.4 g/dL (13.5-17.5); Lymphocytes Absolute Auto 1600 /uL (1100-4500); Lymphocytes Percent Auto 20.3 % (25-40); Mean Corpuscular HGB Conc 33.5 % (30-36); Mean Corpuscular Hemoglobin 29.7 PG (26-34); Mean Corpuscular Volume 88.6 fL (80-100); Monocytes Absolute Auto 800 /uL (0-900); Monocytes Percent Auto 9.7 % (3-14); Neutrophils Absolute Auto 5100 /uL (1500-7000); Neutrophils Percent Auto 64.9 % (50-75); Platelet Count 419 X10^3/uL (150-400); Red Blood Cell Count 3.83 X10^6/uL (4.5-5.9); Red Cell Distribution Width 13.6 % (11.6-14.8); White Blood Cell Count 7.9 X10^3/uL (4.5-11.0)
[2021-05-19 06:08] LABS: BUN Creatinine Ratio 18.3 (6-22); Blood Urea Nitrogen 11 mg/dL (9-20); Calcium 7.9 mg/dL (8.4-10.2); Carbon Dioxide 25 mmol/L (22-32); Chloride 110 mmol/L (98-107); Estimated Glomerular Filt Rate > 60.0 mL/min (>60); Glucose 142 mg/dL (80-110); HEMOLYSIS < 15 (0-50); Magnesium 1.7 mg/dL (1.6-2.3); Sodium 138 mmol/L (137-145)
[2021-05-19] MEDS: PANTOPRAZOLE DR 40 MG TABLET PO (07:01)
--- NOTE | 2021-05-19 07:20 | DI.RAD.S_ITS ---
PROCEDURE: XR ABDOMEN MIN 2V INDICATIONS: f/u ileus. still distended TECHNIQUE: 2 views of the abdomen were acquired. COMPARISON: [facility], , XR ABDOMEN MIN 2V, 05/18/2021, 8:09. FINDINGS: Surgical changes and devices: None. Bowel: No pneumoperitoneum. There is increased, moderate small bowel distension. Multiple air-fluid levels within the small bowel are present, as before. Soft tissues: No masses; visualized solid organ contours appear normal in size. No suspicious abdominal calcifications. Bones: No suspicious bony abnormalities. IMPRESSION: Increased, moderate small bowel obstruction. Dictated by: Norm Lu M.D. on 05/19/2021 at 8:40 Approved by: Norm Lu M.D. on 05/19/2021 at 8:41
--- NOTE | 2021-05-19 07:40 | P.PN_ITS ---
Subjective Subjective Interval history: Patient feels well. Not really having any abdominal pain. Still not passing flatus despite multiple bowel movements.. Exam Vital Signs (past 8 hours): - 05/19/21 02:00 05/19/21 04:00 05/19/21 06:00 Temperature 97.9 F Pulse Rate 72 Respiratory Rate 18 Blood Pressure 117/52 L Pulse Oximetry 92 93 93 Oxygen Delivery Method Nasal Cannula Oxygen Flow Rate 2 Narrative Exam Narrative: Lungs are clear. Good respiratory effort. Heart regular rate and rhythm without murmur gallop. Abdomen is distended soft. Wounds all look fine. No cellulitis. Objective Labs Result Diagrams: 05/19/21 05:50 05/19/21 05:50 Labs: Laboratory Results - last 24 hr 05/19/21 05/19/21 05:50 05:50 WBC 7.9 RBC 3.83 L Hgb 11.4 L Hct 33.9 L MCV 88.6 MCH 29.7 MCHC 33.5 RDW 13.6 Plt Count 419 H Neut % (Auto) 64.9 Lymph % (Auto) 20.3 L [place] % (Auto) 9.7 Eos % (Auto) 3.9 Baso % (Auto) 1.2 Neut # (Auto) 5100 Lymph # (Auto) 1600 [place] # (Auto) 800 Eos # (Auto) 300 Baso # (Auto) 100 Sodium 138 Potassium 3.0 L Chloride 110 H Carbon Dioxide 25 BUN 11 Creatinine 0.60 L Estimated GFR > 60.0 BUN/Creatinine Ratio 18.3 Glucose 142 H Calcium 7.9 L Magnesium 1.7 PFSH Medical History Elevated cholesterol Hypertension Surgical History S/P operative procedure on shoulder S/P operative procedure on wrist Social History household members: spouse and family Smoking Status: Never smoker alcohol intake: never Assessment & Plan Post-op Postoperative Procedures: Procedures Operation Date: 05/10/21 18:15 Actual Procedure Side Surgeon p Laparoscopic Appendectomy Convert to Open Oleksandr John MD Postoperative status narrative: Antibiotics were stopped yesterday. He has had no fever and has a normal pulse. X-rays are pending. Clinically he looks great. He is ambulating in the michelle. Postoperative plan narrative: Waiting morning x-rays. His potassium was low so it is being replaced. Milk of magnesia to see if I can stimulate better bowel function. Depending on those findings will advance diet. Quality VTE Deep Vein Thrombosis/Pulmonary Embolism Present on Admission: No
--- NOTE | 2021-05-19 07:57 | RT ---
Patient placed on 1L NC post RA challenge, continue to wean oxygen as tolerated
[2021-05-19] MEDS: LACTATED RINGERS 1,000 ML 1000 ML IV (08:46)
[2021-05-19] MEDS: MAGNESIUM HYDROXIDE 30 ML UDC PO (08:47)
[2021-05-19] MEDS: POTASSIUM CHLORIDE IN WATER 10 MEQ/100 ML PIGGYBACK 100 MEQ IV ×5 (08:49→20:56)
[2021-05-19] MEDS: TAMSULOSIN 0.4 MG CAPSULE PO (09:02)
[2021-05-19] MEDS: lisinopriL 10 MG TABLET 30 MG PO (09:03)
[2021-05-19] MEDS: GABAPENTIN 300 MG CAPSULE PO ×2 (09:03→20:11)
[2021-05-19] MEDS: ENOXAPARIN 40 MG/0.4 ML SYRINGE SUBCUT (09:03)
[2021-05-19] MEDS: SODIUM CHLORIDE 0.9% FLUSH 10 ML IV (09:03)
[2021-05-19] MEDS: METOCLOPRAMIDE HCL 10 MG TABLET 5 MG PO ×3 (09:07→20:11)
--- NOTE | 2021-05-19 09:58 | PT.IPTN ---
Current Diagnoses Acute appendicitis with localized peritonitis, without perforation or gangrene (05/10/21) Acute appendicitis with perforation and localized peritonitis, with abscess (05/10/21) Surgery Performed Operation Date: 05/10/21 18:15 Actual Procedures p Laparoscopic Appendectomy Convert to Open - Oleksandr John MD Physical Therapy Treatment Note M2 PT-IP Current Condition Start: 05/12/21 13:52 Freq: NEEDED Status: Active Protocol: Document 05/12/21 11:00 AB (Rec: 05/12/21 14:03 AB [id number]) Physical Therapy Current Condition Current Condition Evaluation Date 05/12/21 Treatment Diagnosis s/p appendectomy; difficulty in walking Onset Date 05/10/21 Precautions Abdominal Surgery Precautions Log Roll,Lifting Restrictions, Gait Belt above Incisional Area M3 PT-IP Subjective Start: 05/12/21 13:52 Freq: NEEDED Status: Active Protocol: Document 05/19/21 09:34 CLB (Rec: 05/19/21 13:11 CLB [id number]) Subjective Physical Therapy Visit Type Type Treatment Note Visit Start Time 09:34 Visit Stop Time 09:58 Total Visit Minutes 24 Number of MAILMASTER Visits 4 Physical Therapy Visit Comments Patient Comments Pt agreed to work with therapy . Therapy Pain Assessment Pain Present Pain Present Denied Pain M4 PT-IP Mobility and Gait Start: 05/12/21 13:52 Freq: NEEDED Status: Active Protocol: Document 05/19/21 09:34 CLB (Rec: 05/19/21 13:11 CLB [id number]) PT-Bed Mobility Assessment Supine to Sit Supine to Sit Standby Assistance PT-Transfer Assessment Sit to and From Stand Sit to and from Stand Standby Assistance Equipment Transfer Assistive Device None,Gait Belt Orthotic/Prosthetic Devices or Brace: No Transfers Transfer Destination Chair Transfer Technique Stand Step Pivot Transfer Ability Level of Assist Standby Assistance,Use of Upper Extremities Comments Mobility Comments Pt able to get to EOB SBA, pt then stood SBA and ambulated in michelle w/o AD ~800ft with GB/ CGA with assist with oxygen and landon. Pt then returned to room sitting in chair. All needs within reach. Gait Assessment Gait Gait Assistance Required: Contact Guard Assist,1 Person Assist Distance (Feet) 800 Able to Maintain Weight Bearing Status Yes During Gait Assistive Devices Assistive Device None,Gait Belt Orthotic/Prosthetic Devices or Brace: No Factors Limiting Gait Function Factors Limiting Gait Function Decreased Activity Tolerance, Poor Balance,Respiratory Distress Comments Gait Comments Pt ambulated ~800ft around [facility]. Pt ambulated w/o AD with CGA. SpO2 remained 94-96% duing ambulation on 3L. Stair Climbing Assessment Comments Stair Climbing Comments no stairs at home to assess, has ramp to enter home. PT-Balance Assessment Sitting Balance and Reactions Static Sitting Balance Ability Normal Dynamic Sitting Balance Ability Good Standing Balance and Reactions Static Standing Balance Ability Good Dynamic Standing Balance Ability Fair M5 PT-IP Objective Assessments Start: 05/12/21 13:52 Freq: NEEDED Status: Active Protocol: Document 05/12/21 11:00 AB (Rec: 05/12/21 14:03 AB [id number]) Orientation Orientation/Cognition Level of Alertness Alert Orientation Name,Place,Situation Language Function Ability No Deficits Noted Safety Awareness Understands Safety Issues Memory Description No Deficits Noted Gross Range of Motion Lower Extremity ROM Assessment Within Functional Limits Strength Comments Strength Comments RLE : 4-/5 LLE: 4/5 Coordination Assessment Gross Coordination Gross Coordination WNL Sensation Assessment Sensation Gross Sensation WNL Muscle Tone Muscle Tone WNL Yes M6 PT-IP Treatment Start: 05/12/21 13:52 Freq: NEEDED Status: Active Protocol: Document 05/16/21 09:00 SP (Rec: 05/16/21 13:28 SP [id number]) Physical Therapy Treatment Education Education Provided Safety M7 PT-IP Assessment and Plan Start: 05/12/21 13:52 Freq: NEEDED Status: Active Protocol: Document 05/19/21 09:34 CLB (Rec: 05/19/21 13:11 CLB [id number]) PT Summary Assessment and Plan Potential Rehabilitation Potential Good Status of Condition at Evaluation Evolving Summary Impairments Pain,ROM,Strength,Balance, Coordination,Sensation,Tone, Cognition,Bed Mobility, Transfers,Gait,Activity Tolerance Progress Towards Goals Progressing Toward Goals Assessment Summary Pt able to ambulate CGA w/o AD will continue to progress pt' s gait ability w/o AD as able. Goals Bed Mobility Goal Independent Transfer Goal Independent Gait Goal Independent Gait Distance 250 Other Goals ambulation without AD 250 ft independent Days to Meet Goals 10 Frequency of Treatment Frequency Of Treatment Once a Day Treatment Plan Physical Therapy Treatment Plan Bed Mobility Training,Transfer Training,Gait Training, Therapeutic Exercise,Balance Retraining,Post Op Education, Discharge Planning,Hot or Cold Pack,Neuromuscular Re-ed, Coordination Retraining,Manual Therapy Other Recommendations and Next Treatment gait w/o AD, bed mobility Focus Precautions Abdominal Surgery Precautions Log Roll,Lifting Restrictions, Gait Belt above Incisional Area Recommendations To Nursing Amount of Assist Needed Standby Assistance Discharge Recommendations PT Discharge Recommendations Home with Assistance Transportation Needs at Discharge Private Vehicle
--- NOTE | 2021-05-19 10:35 | DI.CT.S_ITS ---
PROCEDURE: CT ABDOMEN PELVIS W CON INDICATIONS: Persistent small bowel dilitation distention post appy TECHNIQUE: After the administration of intravenous contrast, axial sections acquired from the lung bases to the pubic symphysis. Coronal and sagittal reformats were performed. For radiation dose reduction, the following was used: automated exposure control, adjustment of mA and/or kV according to patient size. COMPARISON: None. FINDINGS: Image quality: Excellent. Lung bases: Bilateral pleural effusions with overlying atelectasis and some mild consolidation. Heart: No significant findings. ABDOMEN: Liver: No hepatic mass or perihepatic fluid. Gallbladder: Normally distended gallbladder without wall thickening or adjacent inflammatory changes. Biliary ducts: No intrahepatic or extrahepatic biliary ductal dilatation Pancreas: No peripancreatic inflammatory changes. There is mild pancreatic atrophy. No pancreatic ductal dilatation. Spleen: Normal size and appearance of the spleen. Adrenal Glands: No adrenal gland nodule or mass. Kidneys and Ureters: Mildly dilated left extrarenal pelvis. No hydroureteronephrosis or abnormal perinephric fat stranding. Stomach and Bowel: There are 2 separate segments of small bowel dilatation. 1 involving the proximal jejunum to the level of the proximal ileum with a transition point in the mid abdomen on series 2, image 51. The other involves the mid and distal ileum beginning on series to image 62 and extending to the level of the distal ileum. Small bowel loops have a maximum diameter of 4-4.5 cm. There are inflammatory changes including fat stranding and small volume free fluid in the right lower quadrant adjacent to the terminal ileum and sacrum. No organized or rim enhanced fluid collection. Peritoneum: No abnormal intraperitoneal fluid. No free air. Ventral Wall: No hernias. Abdominal Nodes: No retroperitoneal or mesenteric adenopathy by size criteria. Vessels: Aorta and inferior vena cava are normal in size. PELVIS: Pelvic Organs: Unremarkable. Bladder: Mild urinary bladder wall thickening and fat stranding surrounding the urinary bladder along with small volume free pelvic fluid. Pelvic Nodes: No enlarged lymph nodes. Miscellaneous: No hernias are seen. Bones: Unremarkable. IMPRESSION: There are two discrete areas of dilated small bowel, one in the jejunum and proximal ileum, and another in the distal ileum. These are by two separate transition points. Findings are favored to represent ileus, as two separate small bowel obstructions with separate transition points is unexpected. Obstruction should still be clinically excluded, however. Inflammatory changes in the right lower quadrant consistent with recent appendectomy. No fluid collection or abscess. Dictated by: Sanju Gibson M.D. on 05/19/2021 at 12:23 Approved by: Sanju Gibson M.D. on 05/19/2021 at 12:31
--- NOTE | 2021-05-19 15:48 | DI.RAD.S_ITS ---
PROCEDURE: XR CHEST FOR PICC 1V INDICATIONS: picc placement COMPARISON: [facility], , XR CHEST 1V, 05/13/2021, 3:46. FINDINGS: PICC was placed by the intravenous therapy team from the left side. Fluoroscopic spot film demonstrates the tip of PICC projecting to the area of mid SVC. Moderate left basilar airspace opacity. IMPRESSION: Tip of PICC projects to the area of mid SVC. Left basilar pneumonia. Continued plain film surveillance is recommended to ensure resolution, and to exclude underlying or central malignancy. Dictated by: Norm Lu M.D. on 05/19/2021 at 14:57 Approved by: Norm Lu M.D. on 05/19/2021 at 14:58
[2021-05-19 16:20] LABS: Bacteria Urine None Seen; Bilirubin Urine UA NEGATIVE (NEGATIVE); Color Urine UA YELLOW; Glucose Urine UA TRACE g/dL (Negative); Ketones Urine UA TRACE (NEGATIVE); Leukocyte Esterase Urine UA NEGATIVE (NEGATIVE); Nitrite Urine UA NEGATIVE (Negative); Occult Blood Urine UA TRACE-INTACT (Negative); Protein Urine UA NEGATIVE (Negative); RBC Urine None Seen (0-5/HPF); Specific Gravity Urine UA <=1.005 (1.000-1.035); Urobilinogen Urine UA 0.2 E.U./dL (0.2); WBC Urine None Seen (0-5/HPF)
[2021-05-19 16:21] LABS: Appearance Urine UA SL CLOUDY
[2021-05-19 16:27] LABS: Culture Indicated Urine Cult Not Indicated; Urine Comments Microscopic Normal
--- NOTE | 2021-05-19 17:13 | PC.NURSE ---
Precision Picc in to place dual lumen picc line for TPN and reliable iv access. Picc placed LUE and confirmed by xray. Picc RN states okay to use. Potassium riders and maintenance iv fluids begun as ordered. Of note, pt has soft fleshy area to left upper arm lateral to picc insertion site. Pt confirms this is baseline and Picc RN confirms this is pt's anatomy. No complaints of pain with infusion. Both lumens draw blood easily.
[2021-05-19] MEDS: AA 5 %/CALCIUM/LYTES/DEXT 20 % 1,000 ML with MULTIVITAMIN 10 ML, TRACE ELEMENTS 1 ML, F... 42.292 ML IV (18:25)
[2021-05-19] MEDS: FAT EMULSIONS 50 GM/250 ML EMULSION IV (18:26)
--- NOTE | 2021-05-19 19:00 | PC.NURSE ---
Addendum entered by Brandon Ko 05/19/21 19:11: 1905- Patient reports having a small BM that is green in color. 250cc urine output. Original Note: 1700-Patient is resting in bed and is alert and oriented to person, place, and situation. He reports a 1/10 pain, but does not want any Tylenol PRN, at this time for pain management. His last BM was 05/18, and he reports passing no gas. Lung sounds are clear bilaterally and heart rate is regular, strong and with clear S1 and S2 sounds. This student nurse hears hypoactive bowel sounds in his RUQ, RLQ and LUQ; but no bowel sounds in LLQ. PICC line was placed by appropriate provider in his left upper arm and waiting approval from diagnostic to confirm correct placement. [place] is removed per MD order. Bed is in locked and in low position with alarm on. Patient provided a blanket for comfort and call light is in reach.
[2021-05-19] MEDS: ATORVASTATIN 20 MG TABLET 10 MG PO (20:11)
[2021-05-19] MEDS: DEXTROSE 5%-LACTATED RINGERS 1,000 ML 150 ML IV (22:32)
[2021-05-20] VITALS (11 sets, daily range): BP systolic 92–185; BP diastolic 53–87; PULSE 62–71; RESP 16–18; TEMP 36.3–37; O2SAT 90–97
[2021-05-20] MEDS: INSULIN LISPRO 100 UNIT/ML 3ML VIAL SUBCUT ×3 (03:17→18:42)
[2021-05-20] MEDS: PANTOPRAZOLE DR 40 MG TABLET PO (06:12)
[2021-05-20 06:26] LABS: Blood Urea Nitrogen 7 mg/dL (9-20); Calcium 8.1 mg/dL (8.4-10.2); Carbon Dioxide 24 mmol/L (22-32); Chloride 110 mmol/L (98-107); Estimated Glomerular Filt Rate > 60.0 mL/min (>60); Glucose 169 mg/dL (80-110); HEMOLYSIS < 15 (0-50); Potassium 3.4 mmol/L (3.4-5.1); Sodium 136 mmol/L (137-145)
[2021-05-20] MEDS: lisinopriL 10 MG TABLET 30 MG PO (08:52)
[2021-05-20] MEDS: ENOXAPARIN 40 MG/0.4 ML SYRINGE SUBCUT (08:52)
[2021-05-20] MEDS: GABAPENTIN 300 MG CAPSULE PO ×2 (08:52→21:00)
[2021-05-20] MEDS: TAMSULOSIN 0.4 MG CAPSULE PO (08:52)
[2021-05-20] MEDS: METOCLOPRAMIDE HCL 10 MG TABLET 5 MG PO ×3 (08:53→21:01)
--- NOTE | 2021-05-20 10:43 | PT.IPTN ---
Current Diagnoses Acute appendicitis with localized peritonitis, without perforation or gangrene (05/10/21) Acute appendicitis with perforation and localized peritonitis, with abscess (05/10/21) Surgery Performed Operation Date: 05/10/21 18:15 Actual Procedures p Laparoscopic Appendectomy Convert to Open - Oleksandr John MD Physical Therapy Treatment Note M2 PT-IP Current Condition Start: 05/12/21 13:52 Freq: NEEDED Status: Active Protocol: Document 05/12/21 11:00 AB (Rec: 05/12/21 14:03 AB [id number]) Physical Therapy Current Condition Current Condition Evaluation Date 05/12/21 Treatment Diagnosis s/p appendectomy; difficulty in walking Onset Date 05/10/21 Precautions Abdominal Surgery Precautions Log Roll,Lifting Restrictions, Gait Belt above Incisional Area M3 PT-IP Subjective Start: 05/12/21 13:52 Freq: NEEDED Status: Active Protocol: Document 05/20/21 10:43 AW (Rec: 05/20/21 12:00 AW [id number]) Subjective Physical Therapy Visit Type Type Treatment Note Visit Start Time 10:32 Visit Stop Time 10:43 Total Visit Minutes 11 Number of EXAMINATION PROCTOR Visits 0 Physical Therapy Visit Comments Patient Comments Pt agreed to work with therapy . Therapy Pain Assessment Pain Present Pain Present Allowed to Sleep M4 PT-IP Mobility and Gait Start: 05/12/21 13:52 Freq: NEEDED Status: Active Protocol: Document 05/20/21 10:43 AW (Rec: 05/20/21 12:00 AW [id number]) PT-Transfer Assessment Sit to and From Stand Sit to and from Stand Standby Assistance Equipment Transfer Assistive Device None,Gait Belt Orthotic/Prosthetic Devices or Brace: No Transfers Transfer Destination Chair Transfer Technique Stand Step Pivot Transfer Ability Level of Assist Standby Assistance,Use of Upper Extremities Comments Mobility Comments Pt stood from the chair and ambulated around the unit a total of 800 feet without AD SBA. He had one minor lateral LOB but was able to recover independently. Balance and gait quality improved with distance. Pt scored 11/12 on 4 -item Dynamic Gait Index ( single point deducted for minor path deviation during horizontal head turns). Pt transferred back to chair SBA on return to the room. Gait Assessment Gait Gait Assistance Required: Standby Assistance Distance (Feet) 800 Able to Maintain Weight Bearing Status Yes During Gait Assistive Devices Assistive Device None,Gait Belt Orthotic/Prosthetic Devices or Brace: No Gait Deviations General Gait Pattern Lateral Trunk Lean Factors Limiting Gait Function Factors Limiting Gait Function Decreased Activity Tolerance, Poor Balance Comments Gait Comments SpO2 was stable throughout session 95-96% on room air. See mobility comments for details. Stair Climbing Assessment Comments Stair Climbing Comments no stairs at home to assess, has ramp to enter home. PT-Balance Assessment Sitting Balance and Reactions Static Sitting Balance Ability Normal Dynamic Sitting Balance Ability Normal Standing Balance and Reactions Static Standing Balance Ability Good Dynamic Standing Balance Ability Fair Device Used no AD SBA Functional Assessments Functional Tests Dynamic Gait Index 4-item test: 08/31 M5 PT-IP Objective Assessments Start: 05/12/21 13:52 Freq: NEEDED Status: Active Protocol: Document 05/12/21 11:00 AB (Rec: 05/12/21 14:03 AB [id number]) Orientation Orientation/Cognition Level of Alertness Alert Orientation Name,Place,Situation Language Function Ability No Deficits Noted Safety Awareness Understands Safety Issues Memory Description No Deficits Noted Gross Range of Motion Lower Extremity ROM Assessment Within Functional Limits Strength Comments Strength Comments RLE : 4-/5 LLE: 4/5 Coordination Assessment Gross Coordination Gross Coordination WNL Sensation Assessment Sensation Gross Sensation WNL Muscle Tone Muscle Tone WNL Yes M6 PT-IP Treatment Start: 05/12/21 13:52 Freq: NEEDED Status: Active Protocol: Document 05/20/21 10:43 AW (Rec: 05/20/21 12:00 AW [id number]) Physical Therapy Treatment Education Education Provided Safety M7 PT-IP Assessment and Plan Start: 05/12/21 13:52 Freq: NEEDED Status: Active Protocol: Document 05/20/21 10:43 AW (Rec: 05/20/21 12:00 AW [id number]) PT Summary Assessment and Plan Potential Rehabilitation Potential Good Status of Condition at Evaluation Evolving Summary Impairments Pain,ROM,Strength,Balance, Coordination,Sensation,Tone, Cognition,Bed Mobility, Transfers,Gait,Activity Tolerance Progress Towards Goals Progressing Toward Goals Assessment Summary Pt able to ambulate without AD SBA, approaching independence . Dynamic balance was tested today with 4-item DGI and pt scored 11/12 indicating low risk of falls. Pt improving without AD. Will likely see pt one more visit and assess for discharge from therapy service. Goals Bed Mobility Goal Independent Transfer Goal Independent Gait Goal Independent Gait Distance 250 Other Goals ambulation without AD 250 ft independent Days to Meet Goals 10 Frequency of Treatment Frequency Of Treatment Once a Day Treatment Plan Physical Therapy Treatment Plan Bed Mobility Training,Transfer Training,Gait Training, Therapeutic Exercise,Balance Retraining,Post Op Education, Discharge Planning,Hot or Cold Pack,Neuromuscular Re-ed, Coordination Retraining,Manual Therapy Other Recommendations and Next Treatment gait w/o AD, bed mobility Focus Precautions Abdominal Surgery Precautions Log Roll,Lifting Restrictions, Gait Belt above Incisional Area Recommendations To Nursing Amount of Assist Needed 1 Person Assist Discharge Recommendations PT Discharge Recommendations Home with Assistance Transportation Needs at Discharge Private Vehicle
--- NOTE | 2021-05-20 11:55 | PM.PNPO.1 ---
Subjective Subjective Date Patient Seen: 05/20/21 Time Patient Seen: 11:57 Interval history: No major overnight events. Passing flatus ambulating around the nurse's station. Minimal abdominal pain. Exam Vital Signs (past 8 hours): - 05/20/21 07:30 05/20/21 11:00 Temperature 97.6 F 97.4 F L Pulse Rate 65 71 Respiratory Rate 18 18 Blood Pressure 137/61 160/69 H Pulse Oximetry 97 96 Oxygen Delivery Method Nasal Cannula Oxygen Flow Rate 0 Narrative Exam Narrative: General elderly man alert oriented no acute distress Abdomen incision right lower quadrant clean dry intact. Laparoscopic ports clean dry intact Objective Labs Result Diagrams: 05/19/21 05:50 05/20/21 06:00 Labs: Laboratory Results - last 24 hr 05/19/21 05/20/21 16:13 06:00 Sodium 136 L Potassium 3.4 Chloride 110 H Carbon Dioxide 24 BUN 7 L Creatinine 0.50 L Estimated GFR > 60.0 BUN/Creatinine Ratio 14.0 Glucose 169 H Calcium 8.1 L Urine Color Yellow Urine Appearance Sl cloudy Urine pH 8.0 Ur Specific [place] <=1.005 Urine Protein Negative Urine Glucose (UA) Trace H Urine Ketones Trace H Urine Occult Blood Trace-intact Urine Nitrate Negative Urine Bilirubin Negative Urine Urobilinogen 0.2 Ur Leukocyte Esterase Negative Urine RBC None seen Urine WBC None seen Urine Bacteria None seen Ur Culture Indicated? Cult not indicated Micro UA Comment Microscopic normal PFSH Medical History Elevated cholesterol Hypertension Surgical History S/P operative procedure on shoulder S/P operative procedure on wrist Social History household members: spouse and family Smoking Status: Never smoker alcohol intake: never Assessment & Plan Post-op Postoperative Procedures: Procedures Operation Date: 05/10/21 18:15 Actual Procedure Side Surgeon p Laparoscopic Appendectomy Convert to Open Oleksandr John MD Postoperative status narrative: 80-year-old male 1.5 weeks status post laparoscopic assisted appendectomy for perforated appendicitis. He has had a prolonged postoperative ileus which seems to be slowly improving. -begin clear liquids and continue TPN -continue p.o. Reglan -out of bed ambulate -SCDs and Lovenox. Quality VTE Deep Vein Thrombosis/Pulmonary Embolism Present on Admission: No
[2021-05-20] MEDS: DEXTROSE 5%-LACTATED RINGERS 1,000 ML 150 ML IV ×2 (12:12→18:31)
--- NOTE | 2021-05-20 16:48 | PC.NURSE ---
Addendum entered by Brandon Ko 05/20/21 17:53: Patient ambulated halls and did 6 laps around the North side. Gait belt on, appropriate footwear, and this student nurse at side for the entire time. He is steady on his feet and no concerns with ambulation. He returned back to his room and is currently using the bathroom. Original Note: Patient is sitting in chair watching TV. He is alert and oriented. He states pain of a 2/10 that is sharp in the abdomen, especially to touch. He does not want any pain meds at this point in time. Lung sounds are clear and equal throughout all posterior calix. He denies SOB, nausea and vomiting. Last BM was reported as earlier this afternoon. His abdomen is distended and firm, with absent bowel sounds in all calix expect his LUQ which is tympanic. Call light remains within reach.
[2021-05-20] MEDS: AA 5 %/CALCIUM/LYTES/DEXT 20 % 1,000 ML with MULTIVITAMIN 10 ML, TRACE ELEMENTS 1 ML, F... 42.292 ML IV (18:30)
--- NOTE | 2021-05-20 19:46 | PC.NURSE ---
Up in recliner and ambulatory in hallways this evening shift with MOTOR EQUIPMENT CAPTAIN standby. Pt denies nausea and reports pain is minimal. States pain medications are not needed. Abdomen is rotund and firm. Pt does state passing a bit of flatus with toileting. Bowel tones absent @ this assessment. Encouraged to take liquid diet slowly. BL lebron hose in place and pt defers scd's until later in shift. Right lateral lower abdominal incision shows some erythema around sutures with right lateral aspect of incision more visible and tense than last evening shift 05/19.
[2021-05-20] MEDS: ATORVASTATIN 20 MG TABLET 10 MG PO (21:00)
[2021-05-21] VITALS (7 sets, daily range): BP systolic 139–172; BP diastolic 57–69; PULSE 72–76; RESP 16–18; TEMP 36.5–37.7; O2SAT 92–96
[2021-05-21] MEDS: DEXTROSE 5%-LACTATED RINGERS 1,000 ML 150 ML IV ×2 (01:07→08:14)
[2021-05-21] MEDS: PANTOPRAZOLE DR 40 MG TABLET PO (08:11)
[2021-05-21] MEDS: TAMSULOSIN 0.4 MG CAPSULE PO (08:12)
[2021-05-21] MEDS: GABAPENTIN 300 MG CAPSULE PO (08:12)
[2021-05-21] MEDS: lisinopriL 10 MG TABLET 30 MG PO (08:12)
[2021-05-21] MEDS: ENOXAPARIN 40 MG/0.4 ML SYRINGE SUBCUT (08:12)
[2021-05-21] MEDS: METOCLOPRAMIDE HCL 10 MG TABLET 5 MG PO (08:12)
[2021-05-21] MEDS: SODIUM CHLORIDE 0.9% FLUSH 10 ML IV (08:13)
[2021-05-21 08:28] LABS: Blood Urea Nitrogen 6 mg/dL (9-20); Calcium 8.2 mg/dL (8.4-10.2); Carbon Dioxide 23 mmol/L (22-32); Chloride 111 mmol/L (98-107); Estimated Glomerular Filt Rate > 60.0 mL/min (>60); Glucose 115 mg/dL (80-110); HEMOLYSIS 36 (0-50); Magnesium 1.9 mg/dL (1.6-2.3); Potassium 3.8 mmol/L (3.4-5.1); Sodium 138 mmol/L (137-145)
--- NOTE | 2021-05-21 10:00 | PT.IPTN ---
Current Diagnoses Acute appendicitis with localized peritonitis, without perforation or gangrene (05/10/21) Acute appendicitis with perforation and localized peritonitis, with abscess (05/10/21) Surgery Performed Operation Date: 05/10/21 18:15 Actual Procedures p Laparoscopic Appendectomy Convert to Open - Oleksandr John MD Physical Therapy Treatment Note M2 PT-IP Current Condition Start: 05/12/21 13:52 Freq: NEEDED Status: Active Protocol: Document 05/12/21 11:00 AB (Rec: 05/12/21 14:03 AB [id number]) Physical Therapy Current Condition Current Condition Evaluation Date 05/12/21 Treatment Diagnosis s/p appendectomy; difficulty in walking Onset Date 05/10/21 Precautions Abdominal Surgery Precautions Log Roll,Lifting Restrictions, Gait Belt above Incisional Area M3 PT-IP Subjective Start: 05/12/21 13:52 Freq: NEEDED Status: Active Protocol: Document 05/21/21 10:00 AW (Rec: 05/21/21 10:07 AW [id number]) Subjective Physical Therapy Visit Type Type Treatment Note Visit Start Time 09:44 Visit Stop Time 10:00 Total Visit Minutes 16 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 Therapy Pain Assessment Pain Present Pain Present Denied Pain M4 PT-IP Mobility and Gait Start: 05/12/21 13:52 Freq: NEEDED Status: Active Protocol: Document 05/21/21 10:00 AW (Rec: 05/21/21 10:07 AW [id number]) PT-Transfer Assessment Sit to and From Stand Sit to and from Stand Independent,Use of Upper Extremities Equipment Transfer Assistive Device None,Gait Belt Orthotic/Prosthetic Devices or Brace: No Transfers Transfer Destination Chair Transfer Technique Stand Step Pivot Transfer Ability Level of Assist Independent,Use of Upper Extremities Comments Mobility Comments Pt stood and ambulated IND. He complained of minor abdominal pain while bending to don his shoes but otherwise denied pain during mobility. Safety awareness and balance were good. Gait Assessment Gait Gait Assistance Required: Independent Distance (Feet) 1,000 Assistive Devices Assistive Device None,Gait Belt Orthotic/Prosthetic Devices or Brace: No Gait Deviations General Gait Pattern Lateral Trunk Lean Factors Limiting Gait Function Factors Limiting Gait Function Decreased Activity Tolerance Comments Gait Comments VSS before and after activity. Stair Climbing Assessment Comments Stair Climbing Comments no stairs at home to assess, has ramp to enter home. PT-Balance Assessment Sitting Balance and Reactions Static Sitting Balance Ability Normal Dynamic Sitting Balance Ability Normal Standing Balance and Reactions Static Standing Balance Ability Good Dynamic Standing Balance Ability Good Device Used no AD M5 PT-IP Objective Assessments Start: 05/12/21 13:52 Freq: NEEDED Status: Active Protocol: Document 05/12/21 11:00 AB (Rec: 05/12/21 14:03 AB [id number]) Orientation Orientation/Cognition Level of Alertness Alert Orientation Name,Place,Situation Language Function Ability No Deficits Noted Safety Awareness Understands Safety Issues Memory Description No Deficits Noted Gross Range of Motion Lower Extremity ROM Assessment Within Functional Limits Strength Comments Strength Comments RLE : 4-/5 LLE: 4/5 Coordination Assessment Gross Coordination Gross Coordination WNL Sensation Assessment Sensation Gross Sensation WNL Muscle Tone Muscle Tone WNL Yes M6 PT-IP Treatment Start: 05/12/21 13:52 Freq: NEEDED Status: Active Protocol: Document 05/21/21 10:00 AW (Rec: 05/21/21 10:07 AW [id number]) Physical Therapy Treatment Education Education Provided Safety M7 PT-IP Assessment and Plan Start: 05/12/21 13:52 Freq: NEEDED Status: Active Protocol: Document 05/21/21 10:00 AW (Rec: 05/21/21 10:07 AW [id number]) PT Summary Assessment and Plan Potential Rehabilitation Potential Good Status of Condition at Evaluation Stable Summary Progress Towards Goals Safe For Discharge,Goals Met Assessment Summary Pt improved all mobility to independent this date. He is highly motivated to return home. Acute PT is no longer indicated. Will discharge PT orders at this time. Goals Bed Mobility Goal Independent Transfer Goal Independent Gait Goal Independent Gait Distance 250 Other Goals ambulation without AD 250 ft independent Days to Meet Goals 10 Frequency of Treatment Frequency Of Treatment Discharge Treatment Plan Physical Therapy Treatment Plan Bed Mobility Training,Transfer Training,Gait Training, Therapeutic Exercise,Balance Retraining,Post Op Education, Discharge Planning,Hot or Cold Pack,Neuromuscular Re-ed, Coordination Retraining,Manual Therapy Precautions Abdominal Surgery Precautions Log Roll,Lifting Restrictions, Gait Belt above Incisional Area Recommendations To Nursing Amount of Assist Needed Independent,Standby Assistance Discharge Recommendations PT Discharge Recommendations Home with Assistance Transportation Needs at Discharge Private Vehicle
--- NOTE | 2021-05-21 11:52 | PM.PNPO.1 ---
Subjective Subjective Date Patient Seen: 05/21/21 Time Patient Seen: 11:52 Interval history: did well with clear liquids yesterday. Multiple BMs overnight. Feels well no pain and ambulating halls. Exam Vital Signs (past 8 hours): - 05/21/21 06:00 05/21/21 08:00 05/21/21 08:12 Temperature 99.9 F H 97.8 F Pulse Rate 75 72 72 Respiratory Rate 16 18 Blood Pressure 141/68 H 139/63 139/63 Pulse Oximetry 94 95 05/21/21 09:00 Temperature Pulse Rate Respiratory Rate Blood Pressure Pulse Oximetry 95 Oxygen Delivery Method Room Air Oxygen Flow Rate 0 Narrative Exam Narrative: Gen-Elderly man no distress Abdomen-Soft, RLQ incision CDI. Extm WWP Objective Labs Result Diagrams: 05/19/21 05:50 05/21/21 08:10 Labs: Laboratory Results - last 24 hr 05/21/21 08:10 Sodium 138 Potassium 3.8 Chloride 111 H Carbon Dioxide 23 BUN 6 L Creatinine 0.46 L Estimated GFR > 60.0 BUN/Creatinine Ratio 13.0 Glucose 115 H Calcium 8.2 L Magnesium 1.9 PFSH Medical History Elevated cholesterol Hypertension Surgical History S/P operative procedure on shoulder S/P operative procedure on wrist Social History household members: spouse and family Smoking Status: Never smoker alcohol intake: never Assessment & Plan Post-op Postoperative Procedures: Procedures Operation Date: 05/10/21 18:15 Actual Procedure Side Surgeon p Laparoscopic Appendectomy Convert to Open Oleksandr John MD Postoperative plan narrative: 80M 1.5 wks sp lap to open appendectomy for perforated appendicitis. #Post operative ileus-Resolved DC home today if tolerating regular diet SCDs and pLovenox Quality VTE Deep Vein Thrombosis/Pulmonary Embolism Present on Admission: No
--- NOTE | 2021-05-21 11:59 | P.DS_ITS ---
History of Present Illness History of Present Illness Date Patient Seen: 05/21/21 Time Patient Seen: 12:00 Chief complaint: LRQ Pain, Sent Frm [facility] Narrative: 80M presented with abdominal pain found to have acute appendicitis confirmed with CT A/P. Discharge Providers Provider Date of admission: 05/10/21 14:10 Discharge Date: 05/21/21 Consults: 05/10/21 22:47 Consult to Discharge Planning Routine Comment: 05/11/21 20:19 Consult to Physical Therapy Evaluate & Treat Comment: Needs strengthening and walking assistance post op Physician Instructions: Evaluate and Treat 05/13/21 05:11 Consult to Respiratory Therapy Evaluate & Treat Comment: Physician Instructions: Evaluate and treat Discharge provider: Jaguar Yin MD Summary Hospital Course Discharge Diagnosis: Perforated appendicitis Postoperative ileus Hospital Course: Patient had a laparoscopic converted to open appendectomy. Perforated appendicitis with abscess was found. Postoperatively maintained on antibiotics. Had a prolonged post operative ileus which required bowel rest, serial abdominal radiographys, TPN and ultimately with conservative treatment ileus resolved. At discharge afbrile, ambulating thacker, tolerating regular diet having bowel movements and with flatus. Status at Discharge Cognitive/behavioral status at discharge: oriented Overall status at discharge: patient is progressing back to baseline Time Spent with Patient Time spent: Greater than 30 minutes Exam Vital Signs (past 8 hours): - 05/21/21 06:00 05/21/21 08:00 05/21/21 08:12 Temperature 99.9 F H 97.8 F Pulse Rate 75 72 72 Respiratory Rate 16 18 Blood Pressure 141/68 H 139/63 139/63 Pulse Oximetry 94 95 05/21/21 09:00 Temperature Pulse Rate Respiratory Rate Blood Pressure Pulse Oximetry 95 Oxygen Delivery Method Room Air Oxygen Flow Rate 0 Narrative Exam Narrative: General elderly man alert oriented no acute distress Chest nonlabored respirations Abdomen soft compressible right lower quadrant incision clean dry intact with sutures inferior bandage over laparoscopic port incisions clean dry. Objective Labs Result Diagrams: 05/19/21 05:50 05/21/21 08:10 Labs: Laboratory Results - last 24 hr 05/21/21 08:10 Sodium 138 Potassium 3.8 Chloride 111 H Carbon Dioxide 23 BUN 6 L Creatinine 0.46 L Estimated GFR > 60.0 BUN/Creatinine Ratio 13.0 Glucose 115 H Calcium 8.2 L Magnesium 1.9 PFSH Medical History Elevated cholesterol Hypertension Surgical History S/P operative procedure on shoulder S/P operative procedure on wrist Social History household members: spouse and family Smoking Status: Never smoker alcohol intake: never Discharge Plan Discharge Plan Patient Disposition: Home Provider Discharge Comment: You were treated for perforated appendicitis. If you become constipated take a laxative like milk of magnesia. If you drive, You should not drive until you are pain-free off medication. Discharge orders & Medications Prescriptions: New oxycodone 5 mg tablet 5 mg PO Q4H PRN (Reason: pain) Qty: 14 RF: 0 Continued lisinopril 30 mg tablet 30 mg PO DAILY RF: 0 Simvastatin (Zocor) 10 mg PO HS Qty: 0 RF: 0 OMEPRAZOLE 20 mg PO Q DAY Qty: 0 RF: 0 Follow up/Referrals: Oleksandr John MD [Physician] - 1 Week (Please call my office and make an appointment to see me this Friday. If you need to reach a doctor please call our office. If it is after hours listen to the message and you will be inst ructed how to reach the doctor on-call for our practice. Have a pen and paper ready to write the telephone number down) Diet/Activity/Treatments Diet: Diet as Tolerated Activity: You may walk. No lifting anything over 10 lb for at least 4 weeks. No pool or tub for at least 2 weeks. You may remove your bandages/Band-Aids and shower. Leave the little pieces of tape on the wounds fall off on its own. Skin/Wound/Dressing Care Report to your healthcare provider any signs of infection, such as:: chills, fever, night sweats, increased pain, unusual drainage and unusual redness Dressing: Keep the bandage on the incision in the right lower abdomen and in the middle of your lower abdomen until they are healed. There are 2 stitches that half to be removed from the incision in her right abdomen. I will take them out when I see you in the office. Quality VTE Deep Vein Thrombosis/Pulmonary Embolism Present on Admission: No
--- NOTE | 2021-05-21 14:12 | PC.NURSE ---
A&Ox4, VSS. Discharge paperwork reviewed. PICC line removed. Wheeled off of unit at 1400 with daughter driving home.
--- NOTE | 2021-05-21 15:20 | CM.DPC ---
DCP Discharge Home Per MD, pt has tolerated advancing diet and his firm abdomen has softened and bowel tones present and pt medically stable to d/c home with no identified barriers to discharge. Per RN, d/c instructions provided and no concerns at this time. Plan: Patient to d/c home via POV and no further SW needs at this time. ELIAZAR Gilmore
== END 2021-05-21 14:00 | disposition home or self-care (01) | DRG 339 ==
LOC: ED 12:41 → AC 14:21
PROVIDERS: Surgery; Admitting Provider Specialist; Emergency Provider Emergency Medicine; Referring Provider Emergency Medicine; Visit Provider Specialist
PROC: 0DTJ4ZZ Resection of Appendix, Percutaneous Endoscopic Approach (ICD-10-PCS; CPT 44970; principal; 2021-05-10 18:15)
DX: K35.33 Acute appendicitis with perforation, localized peritonitis, and gangrene, with abscess (principal); K56.7 Ileus, unspecified; R33.9 Retention of urine, unspecified
CPT/HCPCS: 36415; 44950; 71045; 74018; 74019; 74022; 74177; 80048; 80053; 81001; 81003; 82550; 82565; 82962; 83690; 83735; 84145; 84484; 85025; 87070; 87075; 87077; 87186; 87205; 87635; 94760; 96365; 96375; 97116; 97162; 97530; 99222; 99284; C9803; B4185; B4189; C9113; J0330; J1100; J1642; J1650; J1815; J1885; J1956; J2270; J2405; J2543; J2704; J2765; J3010; J3480; J7121; Q9967

== ENCOUNTER → 2021-06-07 10:11 | Outpatient (CLI) | payer MEDICARE, SELFPAY ==
[2021-05-10 16:00] VITALS: BMI 25.8
--- NOTE | 2021-06-07 10:15 | DI.RAD.S_ITS ---
PROCEDURE: XR CHEST 2V INDICATIONS: right pleuritic pain with coughing TECHNIQUE: 2 views of the chest were acquired. COMPARISON: [facility], CR, XR CHEST FOR PICC 1V, 05/19/2021, 15:41. FINDINGS: Surgical changes and devices: None. Lungs and pleura: There is blunting of the right costophrenic angle with right basilar atelectasis and/or infiltrate noted. No pneumothorax. Left lung and pleural space clear. Mediastinum: Mediastinal contours are normal. Heart size is normal. Bones and chest wall: No suspicious bony abnormalities. Soft tissues appear unremarkable. IMPRESSION: Right pleural effusion with associated atelectasis and/or infiltrate Approved by: Onel Somers M.D. on 06/07/2021 at 10:39
== END ==
PROVIDERS: Referring Provider Specialist; Visit Provider Specialist
DX: R07.81 Pleurodynia (principal); R05 Cough; J90 Pleural effusion, not elsewhere classified
CPT/HCPCS: 71046

== ENCOUNTER → 2022-08-08 11:57 | Outpatient (CLI) | payer MEDICARE, SELFPAY ==
[2022-08-08 10:45] VITALS: BMI 25.8
--- NOTE | 2022-08-08 11:58 | DI.RAD.S_ITS ---
PROCEDURE: XR FINGER LT MIN 2V INDICATIONS: Left thumb injury TECHNIQUE: AP hand, 2 views of the 1st finger(s) acquired. COMPARISON: None. FINDINGS: Bones: Generalized decrease in osseous mineralization noted. Joint space narrowing and marginal osteophytes noted in the 1st interphalangeal joint. Additional degenerative osteoarthritis noted at the 1st carpometacarpal joint as well as the interphalangeal joints generally. Soft tissues: Within the pad of the thumb, there are 2 linear foreign bodies measuring 5 mm and 3 mm. Associated soft tissue swelling noted. IMPRESSION: Linear foreign bodies noted in the pad of thumb Osteoarthritis Approved by: Onel Somers M.D. on 08/08/2022 at 18:30
== END ==
PROVIDERS: PCP Internal Medicine; Referring Provider Nurse Practitioner Family; Visit Provider Nurse Practitioner Family
DX: S69.92XA Unspecified injury of left wrist, hand and finger(s), initial encounter (principal); S60.352A Superficial foreign body of left thumb, initial encounter; M19.042 Primary osteoarthritis, left hand; X58.XXXA Exposure to other specified factors, initial encounter
CPT/HCPCS: 73140